=== PATIENT | female | born 1955 | race African-American/Black ===

== ENCOUNTER 2017-12-26 01:26 | Emergency (ER) | payer SELFPAY ==
[~2017-12-26] VITALS: Ht 165.1 cm; Wt 81.6 kg
[~2017-12-26 01:26] MED LIST: GLIP5TAB10 PO; METF500T16 PO
[2017-12-26 01:50] VITALS: BP 167/80
--- NOTE | 2017-12-26 02:09 | PHYS DOC ---
Past Medical History Past Medical History: Diabetes-Type II Past Surgical History: No Surgical History Alcohol Use: None Drug Use: None Adult General Chief Complaint Chief Complaint: SKIN RASH/ABSCESS HPI HPI Patient is a 62 year old female who presents with itching to the scan with a macular papular utricarial rash to her trunk. Patient doesn't know what could' ve caused it but states she ate brussels sprouts tonight which she usually does not eat which she made them herself. Patient has no other acute complaints except for this generalized acute itching and rash Review of Systems Review of Systems Constitutional: Denies fever or chills [] Eyes: Denies change in visual acuity, redness, or eye pain [] HENT: Denies nasal congestion or sore throat [] Respiratory: Denies cough or shortness of breath [] Cardiovascular: No additional information not addressed in HPI [] GI: Denies abdominal pain, nausea, vomiting, bloody stools or diarrhea [] : Denies dysuria or hematuria [] Musculoskeletal: Denies back pain or joint pain [] Integument: Positive for rash, Denies skin lesions [] Neurologic: Denies headache, focal weakness or sensory changes [] Endocrine: Denies polyuria or polydipsia [] All other systems were reviewed and found to be within normal limits, except as documented in this note. Allergies Allergies Allergies Coded Allergies Type Severity Reaction Last Updated Verified No Known Drug Allergies 02/26/15 No Physical Exam Physical Exam Constitutional: Well developed, well nourished, no acute distress, non-toxic appearance. [] HENT: Normocephalic, atraumatic, bilateral external ears normal, oropharynx moist, no oral exudates, nose normal. [] Eyes: PERRLA, EOMI, conjunctiva normal, no discharge. [] Neck: Normal range of motion, no tenderness, supple, no stridor. [] Cardiovascular:Heart rate regular rhythm, no murmur [] Lungs & Thorax: Bilateral breath sounds clear to auscultation [] Abdomen: Bowel sounds normal, soft, no tenderness, no masses, no pulsatile masses. [] Skin: Warm, dry, no erythema, urticarial rash to trunk. [] Back: No tenderness, no CVA tenderness. [] Extremities: No tenderness, no cyanosis, no clubbing, ROM intact, no edema. [] Neurologic: Alert and oriented X 3, normal motor function, normal sensory function, no focal deficits noted. [] Psychologic: Affect normal, judgement normal, mood normal. [] Current Patient Data Vital Signs Vital Signs Date Time Temp Pulse Resp B/P (MAP) Pulse Ox O2 Delivery O2 Flow Rate FiO2 12/26/17 01:50 98.1 79 18 97 Room Air 98.1 EKG EKG [] Radiology/Procedures Radiology/Procedures [] Course & Med Decision Making Course & Med Decision Making Pertinent Labs and Imaging studies reviewed. (See chart for details) [] Dragon Disclaimer Dragon Disclaimer This electronic medical record was generated, in whole or in part, using a voice recognition dictation system. Departure Departure Impression: Primary Impression: Allergic reaction Disposition: 01 HOME, SELF-CARE Condition: STABLE Referrals: NO PCP (PCP) Patient Instructions: Allergies, Generic Scripts Prednisone (PREDNISONE) 50 Mg Tablet 1 TAB PO DAILY, #4 TAB Prov: ANDREW DONALD MD 12/26/17 Diphenhydramine Hcl (BENADRYL) 25 Mg Capsule 2 CAP PO Q6HRS for rash, #60 CAP 2 Refills Prov: ANDREW DONALD MD 12/26/17 ANDREW DONALD MD Dec 26, 2017 02:09
[2017-12-26] MEDS ORDERED: DIPH25CA58 PO (02:55)
[2017-12-26] MEDS ORDERED: PRED50TA PO (02:55)
[2017-12-26] MEDS ORDERED: diphenhydrAMINE HCL 25 MG CAPSULE PO ONE (03:30)
[2017-12-26] MEDS ORDERED: predniSONE 20 MG TABLET PO ONE (03:30)
== END 2017-12-26 03:09 | disposition home or self-care (01) ==
LOC: ER 01:26
DX: L50.0 Allergic urticaria (principal); E11.9 Type 2 diabetes mellitus without complications
CPT/HCPCS: 99283; J7512; Q0163

== ENCOUNTER 2018-11-06 12:27 | Inpatient (IN) | payer SELFPAY ==
[~2018-11-06] VITALS: Ht 165.1 cm; Wt 52.6 kg
[~2018-11-06 12:27] MED LIST changes: +DIPH25CA58 PO; +PRED50TA PO
--- NOTE | 2018-11-06 12:51 | PHYS DOC ---
Past Medical History Past Medical History: Diabetes-Type II Past Surgical History: No Surgical History Alcohol Use: None Drug Use: None Adult General Chief Complaint Chief Complaint: NEURO SYMPTOMS/DEFICITS [facility] HPI Patient is a 63 year old female who presents with obtaining of problem with speech. Patient's sister states she was in her normal condition last night at 2300 and this morning she had had expressive aphasia without slurred speech or focal neuro deficit. Patient states she has problems with remembering the words and denies chest pain, headache, blurred vision, nausea and vomiting, focal neuro deficit. Patient's son states she lost about 50 pounds for the last few months and had some tests by her primary care physician. Review of Systems Review of Systems Constitutional: Denies fever or chills [] Eyes: Denies change in visual acuity, redness, or eye pain [] HENT: Denies nasal congestion or sore throat [] Respiratory: Denies cough or shortness of breath [] Cardiovascular: No additional information not addressed in HPI [] GI: Denies abdominal pain, nausea, vomiting, bloody stools or diarrhea [] : Denies dysuria or hematuria [] Musculoskeletal: Denies back pain or joint pain [] Integument: Denies rash or skin lesions [] Neurologic: Denies headache, focal weakness or sensory changes [] Endocrine: Denies polyuria or polydipsia [] All other systems were reviewed and found to be within normal limits, except as documented in this note. Current Medications Current Medications Current Medications Medications (Trade) Dose Ordered Sig/Edda Start Time Stop Time Status Last Admin Dose Admin Magnesium Sulfate 50 ml @ 25 mls/hr 1X ONCE 11/06/18 14:45 11/06/18 16:44 11/06/18 15:19 25 MLS/HR Allergies Allergies Allergies Coded Allergies Type Severity Reaction Last Updated Verified No Known Drug Allergies 02/26/15 No Physical Exam Physical Exam Constitutional: Well developed, well nourished, mild distress, non-toxic appearance. [] HENT: Normocephalic, atraumatic. Eyes: PERRLA, EOMI, conjunctiva normal, no discharge. [] Neck: Normal range of motion, no tenderness, supple, no stridor. [] Cardiovascular:Heart rate regular rhythm, no murmur [] Lungs & Thorax: Bilateral breath sounds clear to auscultation [] Abdomen: Bowel sounds normal, soft, no tenderness, no masses, no pulsatile masses. [] Skin: Warm, dry, no erythema, no rash. [] Back: No tenderness, no CVA tenderness. [] Extremities: No tenderness, no cyanosis, no clubbing, ROM intact, no edema. [] Neurologic: Alert and oriented X 3, no focal deficits noted. NIHS_1 Psychologic: Affect normal, judgement normal, mood normal. [] Current Patient Data Vital Signs Vital Signs Date Time Temp Pulse Resp B/P (MAP) Pulse Ox O2 Delivery O2 Flow Rate FiO2 11/06/18 14:00 98 14 99 11/06/18 12:31 98.1 145/70 (95) Room Air 98.1 Lab Values Laboratory Tests Test 11/06/18 12:47 11/06/18 13:20 Glucose (Fingerstick) 200 mg/dL (70-99) H White Blood Count 9.4 x10^3/uL (4.0-11.0) Red Blood Count 4.31 x10^6/uL (3.50-5.40) Hemoglobin 12.6 g/dL (12.0-15.5) Hematocrit 37.6 % (36.0-47.0) Mean Corpuscular Volume 87 fL (79-100) Mean Corpuscular Hemoglobin 29 pg (25-35) Mean Corpuscular Hemoglobin Concent 34 g/dL (31-37) Red Cell Distribution Width 13.4 % (11.5-14.5) Platelet Count 328 x10^3/uL (140-400) Neutrophils (%) (Auto) 65 % (31-73) Lymphocytes (%) (Auto) 29 % (24-48) Monocytes (%) (Auto) 5 % (0-9) Eosinophils (%) (Auto) 1 % (0-3) Basophils (%) (Auto) 1 % (0-3) Neutrophils # (Auto) 6.1 x10^3/uL (1.8-7.7) Lymphocytes # (Auto) 2.7 x10^3/uL (1.0-4.8) Monocytes # (Auto) 0.5 x10^3/uL (0.0-1.1) Eosinophils # (Auto) 0.0 x10^3/uL (0.0-0.7) Basophils # (Auto) 0.1 x10^3/uL (0.0-0.2) Prothrombin Time 13.0 SEC (11.7-14.0) Prothrombin Time INR 1.0 (0.8-1.1) Activated Partial Thromboplast Time 28 SEC (24-38) Sodium Level 143 mmol/L (136-145) Potassium Level 3.5 mmol/L (3.5-5.1) Chloride Level 102 mmol/L (98-107) Carbon Dioxide Level 34 mmol/L (21-32) H Anion Gap 7 (6-14) Blood Urea Nitrogen 14 mg/dL (7-20) Creatinine 0.8 mg/dL (0.6-1.0) Estimated GFR (Cockcroft-Gault) 87.7 BUN/Creatinine Ratio 18 (6-20) Glucose Level 213 mg/dL (70-99) H Calcium Level 10.0 mg/dL (8.5-10.1) Magnesium Level 1.4 mg/dL (1.8-2.4) L Total Bilirubin 0.6 mg/dL (0.2-1.0) Aspartate Amino Transferase (AST) 10 U/L (15-37) L Alanine Aminotransferase (ALT) 8 U/L (14-59) L Alkaline Phosphatase 62 U/L (46-116) Creatine Kinase 29 U/L (26-192) Troponin I Quantitative < 0.017 ng/mL (0.000-0.055) IG-Ntt-N-Type Natriuretic Peptide 606 pg/mL (0-124) H Total Protein 7.4 g/dL (6.4-8.2) Albumin 4.0 g/dL (3.4-5.0) Albumin/Globulin Ratio 1.2 (1.0-1.7) Laboratory Tests 11/06/18 13:20 Laboratory Tests 11/06/18 13:20 EKG EKG EKG interpreted by me. EKG at 1243 showed normal sinus rhythm at rate of 98, left atrial abnormality, abnormal left axis deviation, left anterior fascicular block, no acute ST and T-wave elevation. Radiology/Procedures Radiology/Procedures [][facility] [address] [place] [address] IMAGING REPORT Signed PATIENT: FRANCISCO JAVIER FERMIN ACCOUNT: [id number] : 1955 LOCATION: ER AGE: 63 SEX: F EXAM STATUS: PRE ER ORD. PHYSICIAN: MIKE GASTELUM MD REASON: expressive aphasia PROCEDURE: PORTABLE CHEST 1V PORTABLE CHEST 1V History: Expressive aphasia. Comparison: None. Findings: No consolidation or pleural effusion. Normal heart size. Chronic right proximal humerus fracture, unchanged alignment. Impression: 1. No acute cardiopulmonary process. Electronically signed by: Osmel Mccullough DO (11/06/2018 1:07 PM) [facility] DICTATED and SIGNED BY: OSMEL MCCULLOUGH DO DATE: 11/06/18 1309 [facility] [address] [place], [place] [id number] IMAGING REPORT Signed PATIENT: FRANCISCO JAVIER FERMIN ACCOUNT: [id number] : 1955 LOCATION: ER AGE: 63 SEX: F EXAM STATUS: REG ER ORD. PHYSICIAN: MIKE GASTELUM MD REASON: expressive aphasia PROCEDURE: CT HEAD WO CONTRAST CT HEAD INDICATION: Expressive aphasia COMPARISON: None Available. Exposure: One or more of the following individualized dose reduction techniques were utilized for this examination: 1. Automated exposure control 2. Adjustment of the mA and/or kV according to patient size 3. Use of iterative reconstruction technique TECHNIQUE: 5 mm contiguous axial images were obtained from the skull base to the vertex in both bone and soft tissue algorithm. FINDINGS: Mild bilateral periventricular white matter hypodensities likely chronic small vessel ischemic disease. No evidence of acute intracranial hemorrhage. No extra-axial fluid collections. No mass effect or midline shift. Ventricular size is appropriate. Basal cisterns are patent. No fractures identified.Sierra-white differentiation is preserved.Globes and orbits are within normal limits. Paranasal sinuses and mastoid air cells are clear. IMPRESSION: No acute intracranial findings. Electronically signed by: Micheal Alexander MD (11/06/2018 2:05 PM) [facility] DICTATED and SIGNED BY: MICHEAL ALEXANDER MD DATE: 11/06/18 1405 Course & Med Decision Making Course & Med Decision Making Pertinent Labs and Imaging studies reviewed. (See chart for details) Evaluation of patient in ER showed 63-year-old female patient with expressive aphasia since this morning that gradually improved without returning to her b aseline. Patient had NIHS-1 and was not a candidate for TPA because of low NIH and also unknown time of the starting symptom. Patient had unremarkable labs except for mild elevation of blood sugar and magnesium of 1.4 patient treated with IV magnesium.Patient requiring admission for further evaluation and treatment. Discussed with Dr. Chaudhry who is in agreement with admission. Discussed findings and plan with patient and family, who acknowledge understanding and agreement. Dragon Disclaimer Dragon Disclaimer This electronic medical record was generated, in whole or in part, using a voice recognition dictation system. Departure Departure Impression: Primary Impression: Expressive aphasia Additional Impressions: Hypomagnesemia Uncontrolled diabetes mellitus Elevated brain natriuretic peptide (BNP) level Weight loss Disposition: ADMITTED INPATIENT (at 1535) Admitting Physician: RUTS (Dr Chaudhry accepted ) Condition: IMPROVED Referrals: NO PCP (PCP) NIHSS Stroke Scale NIH Stroke Scale: NIH Stroke Scale Response (Comments) Value Level of Consciousness: 0 Alert/Responsive 0 LOC Questions: 0 Answers both correctly 0 LOC Commands: 0 Performs both tasks 0 Best Gaze: 0 Normal 0 Visual: 0 No visual loss 0 Facial Palsy: 0 Normal, symmetrical 0 Motor - Left Arm 0 No drift 0 Motor - Right Arm 0 No drift 0 Motor - Left Leg 0 No drift 0 Motor: Right Leg 0 No drift 0 Limb Ataxia: 0 Absent 0 Sensory: 0 No loss 0 Best Language: 1 Mild to mod aphasia 1 Dysathria: 0 Normal 0 Extinction and Inattention: 0 Normal 0 Total 1 Problem Qualifiers Additional Impressions: Uncontrolled diabetes mellitus Diabetes mellitus type: other specified (including SEBASTIAN) Glycemic state: with hyperglycemia Qualified Codes: E13.65 - Other specified diabetes mellitus with hyperglycemia MIKE GASTELUM MD Nov 06, 2018 12:51
--- NOTE | 2018-11-06 13:10 | RAD ---
PORTABLE CHEST 1V History: Expressive aphasia. Comparison: None. Findings: No consolidation or pleural effusion. Normal heart size. Chronic right proximal humerus fracture, unchanged alignment. Impression: 1. No acute cardiopulmonary process. Electronically signed by: Osmel Mccullough DO (11/06/2018 1:07 PM) [facility]
[2018-11-06 13:29] LABS: BASO # 0.1 x10^3/uL (0.0-0.2); BASO % 1 % (0-3); EOS % 1 % (0-3); HEMATOCRIT 37.6 % (36.0-47.0); HEMOGLOBIN 12.6 g/dL (12.0-15.5); LYMPH # 2.7 x10^3/uL (1.0-4.8); LYMPH % 29 % (24-48); MEAN CORPUSCULAR HEMOGLOBIN 29 pg (25-35); MEAN CORPUSCULAR HGB CONC 34 g/dL (31-37); MEAN CORPUSCULAR VOLUME 87 fL (79-100); MONO # 0.5 x10^3/uL (0.0-1.1); MONO % 5 % (0-9); NEUT # 6.1 x10^3/uL (1.8-7.7); NEUT % 65 % (31-73); PLATELET COUNT 328 x10^3/uL (140-400); RED BLOOD COUNT 4.31 x10^6/uL (3.50-5.40); RED CELL DISTRIBUTION WIDTH 13.4 % (11.5-14.5); WHITE BLOOD COUNT 9.4 x10^3/uL (4.0-11.0)
[2018-11-06 13:42] LABS: CREATININE 0.8 mg/dL (0.6-1.0); GFR 87.7; POTASSIUM 3.5 mmol/L (3.5-5.1)
[2018-11-06 13:48] LABS: ALBUMIN/GLOBULIN RATIO 1.2 (1.0-1.7); MAGNESIUM 1.4 mg/dL (1.8-2.4); TOTAL BILIRUBIN 0.6 mg/dL (0.2-1.0); TOTAL PROTEIN 7.4 g/dL (6.4-8.2)
--- NOTE | 2018-11-06 14:09 | RAD ---
CT HEAD INDICATION: Expressive aphasia COMPARISON: None Available. Exposure: One or more of the following individualized dose reduction techniques were utilized for this examination: 1. Automated exposure control 2. Adjustment of the mA and/or kV according to patient size 3. Use of iterative reconstruction technique TECHNIQUE: 5 mm contiguous axial images were obtained from the skull base to the vertex in both bone and soft tissue algorithm. FINDINGS: Mild bilateral periventricular white matter hypodensities likely chronic small vessel ischemic disease. No evidence of acute intracranial hemorrhage. No extra-axial fluid collections. No mass effect or midline shift. Ventricular size is appropriate. Basal cisterns are patent. No fractures identified.Sierra-white differentiation is preserved.Globes and orbits are within normal limits. Paranasal sinuses and mastoid air cells are clear. IMPRESSION: No acute intracranial findings. Electronically signed by: Micheal Navarrete MD (11/06/2018 2:05 PM) [facility]
[2018-11-06] MEDS ORDERED: MAGNESIUM SULFATE 2GM 50 ML IV ONE (14:45)
[2018-11-06] MEDS ORDERED: ASPIRIN CHEWABLE 81 MG TABLET. PO ONE (15:00)
--- NOTE | 2018-11-06 15:40 | PDOC1 ---
History and Physical Date of Admission Date of Admission DATE: 11/06/18 TIME: 15:39 Identification/Chief Complaint Chief Complaint Expressive aphasia Source Source: Chart review, Patient History of Present Illness History of Present Illness Ms Moreno is a 63yo F w/ PMHx Diabetes-Type II who presents with expressive aphasia. Patient's sister states she was in her normal condition last night at 2300 and this morning she had had expressive aphasia without slurred speech or focal neuro deficit. Patient states she has problems with remembering the words and denies chest pain, headache, blurred vision, nausea and vomiting, focal neuro deficit. Patient's son states she lost about 50 pounds for the last few months and had some tests by her primary care physician, apparently. 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 Past Medical History Cardiovascular: No pertinent hx Pulmonary: No pertinent hx GI: No pertinent hx Heme/Onc: No pertinent hx Hepatobiliary: No pertinent hx Psych: No pertinent hx Rheumatologic: No pertinent hx Infectious disease: No pertinent hx ENT: No pertinent hx Renal/: No pertinent hx Endocrine: No pertinent hx Dermatology: No pertinent hx Past Surgical History Past Surgical History: No pertinent history Family History Family History: Diabetes, High Cholestrol, Hypertension Social History Smoke: No ALCOHOL: none Drugs: None Current Medications Current Medications Current Medications Magnesium Sulfate 50 ml @ 25 mls/hr 1X ONCE IV Last administered on 11/06/18at 15:19; Start 11/06/18 at 14:45; Stop 11/06/18 at 16:44 Aspirin (Children'S Aspirin) 81 mg 1X ONCE PO Last administered on 11/06/18at 15:15; Start 11/06/18 at 15:00; Stop 11/06/18 at 15:12; Status DC Active Scripts Active Prednisone 50 Mg Tablet 1 Tab PO DAILY Benadryl (Diphenhydramine Hcl) 25 Mg Capsule 2 Cap PO Q6HRS Reported Glipizide 5 Mg Tablet 1 Tab PO BID Metformin Hcl 500 Mg Tablet 500 Mg PO BIDWMEALS Allergies Allergies: Coded Allergies: No Known Drug Allergies (Unverified , 02/26/15) ROS General: YES: Fatigue, Malaise, Appetite; No: Chills, Night Sweats, Other PSYCHOLOGICAL ROS: YES: Anxiety, Depression; No: Behavioral Disorder, Concentration difficultie, Decreased libido, Disorientation, Hallucinations, Hostility, Irritablity, Memory difficulties, Mood Swings, Obsessive thoughts, Physical abuse, Sexual abuse, Sleep disturbances, Suicidal ideation, Other Eyes: No Blurry vision, No Decreased vision, No Double vision, No Dry eyes, No Excessive tearing, No Eye Pain, No Itchy Eyes, No Loss of vision, No Photophobia, No Scotomata, No Uses contacts, No Uses glasses, No Other HEENT: No: Heacaches, Visual Changes, Hearing change, Nasal congestion, Nasal discharge, Oral lesions, Sinus pain, Sore Throat, Epistaxis, Sneezing, Snoring, Tinnitus, Vertigo, Vocal changes, Other ALLERGY AND IMMUNOLOGY: No: Hives, Insect Bite Sensitivity, Itchy/Watery Eyes, Nasal Congestion, Post Nasal Drip, Seasonal Allergies, Other Hematological and Lymphatic: No: Bleeding Problems, Blood Clots, Blood Transfusions, Brusing, Night Sweats, Pallor, Swollen Lymph Nodes, Other ENDOCRINE: YES: Malaise/lethargy, Unexpected Weight Changes; No: Breast Changes, Galactorrhea, Hair Pattern Changes, Hot Flashes, Mood Swings, Palpitations, Polydipsia/polyuria, Skin Changes, Temperature I ntolerance, Other Breast: No New/Changing Breast Lumps, No Nipple changes, No Nipple discharge, No Other Respiratory: No: Cough, Hemoptysis, Orthopnea, Pleuritic Pain, Shortness of breath, SOB with excertion, Sputum Changes, Stridor, Tachypnea, Wheezing, Other Cardiovascular: No Chest Pain, No Palpitations, No Orthopnea, No Paroxysmal Noc. Dyspnea, No Edema, No Lt Headedness, No Other Gastrointestinal: No Nausea, No Vomiting, No Abdominal Pain, No Diarrhea, No Constipation, No Melena, No Hematochezia, No Other Genitourinary: No Dysuria, No Frequency, No Incontinence, No Hematuria, No Retention, No Discharge, No Urgency, No Pain, No Flank Pain, No Other, No , No , No , No , No , No , No Musculoskeletal: No Gait Disturbance, No Joint Pain, No Joint Stiffness, No Joint Swelling, No Muscle Pain, No Muscular Weakness, No Pain In:, No Swelling In:, No Other Neurological: Yes Speech Problems; No Behavorial Changes, No Bowel/Bladder ControlChng, No Confusion, No Dizzi ness, No Gait Disturbance, No Headaches, No Impaired Coord/balance, No Memory Loss, No Numbness/Tingling, No Seizures, No Tremors, No Visual Changes, No Weakness, No Other Skin: No Dry Skin, No Eczema, No Hair Changes, No Lumps, No Mole Changes, No Mottling, No Nail Changes, No Pruritus, No Rash, No Skin Lesion Changes, No Other, No Acne Physical Exam General: Alert, Oriented X3, Cooperative, No acute distress HEENT: Atraumatic, PERRLA, EOMI, Mucous membr. moist/pink Lungs: Clear to auscultation, Normal air movement Heart: S1S2, RRR, no gallops, no murmurs Abdomen: Normal bowel sounds, Soft, No tenderness, No hepatosplenomegaly, No masses Rectal Exam: not examined Extremities: No clubbing, No cyanosis, No edema, Normal pulses, No tenderness/swelling Skin: No rashes, No breakdown, No significant lesion Neuro: Normal gait, Normal speech, Strength at 5/5 X4 ext, Normal tone, Sensation intact, Cranial nerves 3-12 NL, Reflexes 2+ Psych/Mental Status: Mental status NL, Mood NL Vitals Vitals Vital Signs Date Time Temp Pulse Resp B/P (MAP) Pulse Ox O2 Delivery O2 Flow Rate FiO2 11/06/18 15:00 98 14 100 11/06/18 12:31 98.1 145/70 (95) Room Air 98.1 Labs Labs Laboratory Tests Test 11/06/18 12:47 11/06/18 13:20 Glucose (Fingerstick) 200 mg/dL (70-99) White Blood Count 9.4 x10^3/uL (4.0-11.0) Red Blood Count 4.31 x10^6/uL (3.50-5.40) Hemoglobin 12.6 g/dL (12.0-15.5) Hematocrit 37.6 % (36.0-47.0) Mean Corpuscular Volume 87 fL (79-100) Mean Corpuscular Hemoglobin 29 pg (25-35) Mean Corpuscular Hemoglobin Concent 34 g/dL (31-37) Red Cell Distribution Width 13.4 % (11.5-14.5) Platelet Count 328 x10^3/uL (140-400) Neutrophils (%) (Auto) 65 % (31-73) Lymphocytes (%) (Auto) 29 % (24-48) Monocytes (%) (Auto) 5 % (0-9) Eosinophils (%) (Auto) 1 % (0-3) Basophils (%) (Auto) 1 % (0-3) Neutrophils # (Auto) 6.1 x10^3/uL (1.8-7.7) Lymphocytes # (Auto) 2.7 x10^3/uL (1.0-4.8) Monocytes # (Auto) 0.5 x10^3/uL (0.0-1.1) Eosinophils # (Auto) 0.0 x10^3/uL (0.0-0.7) Basophils # (Auto) 0.1 x10^3/uL (0.0-0.2) Prothrombin Time 13.0 SEC (11.7-14.0) Prothromb Time International Ratio 1.0 (0.8-1.1) Activated Partial Thromboplast Time 28 SEC (24-38) Sodium Level 143 mmol/L (136-145) Potassium Level 3.5 mmol/L (3.5-5.1) Chloride Level 102 mmol/L (98-107) Carbon Dioxide Level 34 mmol/L (21-32) Anion Gap 7 (6-14) Blood Urea Nitrogen 14 mg/dL (7-20) Creatinine 0.8 mg/dL (0.6-1.0) Estimated GFR (Cockcroft-Gault) 87.7 BUN/Creatinine Ratio 18 (6-20) Glucose Level 213 mg/dL (70-99) Calcium Level 10.0 mg/dL (8.5-10.1) Magnesium Level 1.4 mg/dL (1.8-2.4) Total Bilirubin 0.6 mg/dL (0.2-1.0) Aspartate Amino Transf (AST/SGOT) 10 U/L (15-37) Alanine Aminotransferase (ALT/SGPT) 8 U/L (14-59) Alkaline Phosphatase 62 U/L (46-116) Creatine Kinase 29 U/L (26-192) Troponin I Quantitative < 0.017 ng/mL (0.000-0.055) VQ-Rvw-L-Type Natriuretic Peptide 606 pg/mL (0-124) Total Protein 7.4 g/dL (6.4-8.2) Albumin 4.0 g/dL (3.4-5.0) Albumin/Globulin Ratio 1.2 (1.0-1.7) Laboratory Tests Test 11/06/18 12:47 11/06/18 13:20 Glucose (Fingerstick) 200 mg/dL (70-99) White Blood Count 9.4 x10^3/uL (4.0-11.0) Red Blood Count 4.31 x10^6/uL (3.50-5.40) Hemoglobin 12.6 g/dL (12.0-15.5) Hematocrit 37.6 % (36.0-47.0) Mean Corpuscular Volume 87 fL (79-100) Mean Corpuscular Hemoglobin 29 pg (25-35) Mean Corpuscular Hemoglobin Concent 34 g/dL (31-37) Red Cell Distribution Width 13.4 % (11.5-14.5) Platelet Count 328 x10^3/uL (140-400) Neutrophils (%) (Auto) 65 % (31-73) Lymphocytes (%) (Auto) 29 % (24-48) Monocytes (%) (Auto) 5 % (0-9) Eosinophils (%) (Auto) 1 % (0-3) Basophils (%) (Auto) 1 % (0-3) Neutrophils # (Auto) 6.1 x10^3/uL (1.8-7.7) Lymphocytes # (Auto) 2.7 x10^3/uL (1.0-4.8) Monocytes # (Auto) 0.5 x10^3/uL (0.0-1.1) Eosinophils # (Auto) 0.0 x10^3/uL (0.0-0.7) Basophils # (Auto) 0.1 x10^3/uL (0.0-0.2) Prothrombin Time 13.0 SEC (11.7-14.0) Prothromb Time International Ratio 1.0 (0.8-1.1) Activated Partial Thromboplast Time 28 SEC (24-38) Sodium Level 143 mmol/L (136-145) Potassium Level 3.5 mmol/L (3.5-5.1) Chloride Level 102 mmol/L (98-107) Carbon Dioxide Level 34 mmol/L (21-32) Anion Gap 7 (6-14) Blood Urea Nitrogen 14 mg/dL (7-20) Creatinine 0.8 mg/dL (0.6-1.0) Estimated GFR (Cockcroft-Gault) 87.7 BUN/Creatinine Ratio 18 (6-20) Glucose Level 213 mg/dL (70-99) Calcium Level 10.0 mg/dL (8.5-10.1) Magnesium Level 1.4 mg/dL (1.8-2.4) Total Bilirubin 0.6 mg/dL (0.2-1.0) Aspartate Amino Transf (AST/SGOT) 10 U/L (15-37) Alanine Aminotransferase (ALT/SGPT) 8 U/L (14-59) Alkaline Phosphatase 62 U/L (46-116) Creatine Kinase 29 U/L (26-192) Troponin I Quantitative < 0.017 ng/mL (0.000-0.055) VV-Xpq-I-Type Natriuretic Peptide 606 pg/mL (0-124) Total Protein 7.4 g/dL (6.4-8.2) Albumin 4.0 g/dL (3.4-5.0) Albumin/Globulin Ratio 1.2 (1.0-1.7) VTE Prophylaxis Ordered VTE Prophylaxis Devices: Yes VTE Pharmacological Prophylaxi: No Assessment/Plan Assessment/Plan A/P: Expressive aphasia - will have bedside swallow prior to advancing diet. LOGISTICS ASSISTANT to evaluated. Symptoms already improving. NIHSS 1. ASA given. will check lipids, TSH. Neurology was consulted by ED. Telemetry overnight Abnormal weight loss - unintentionally lost about 50 pounds for the last few months. Check TSH. close to UTD on cancer screenings Diabetes-Type II - on metformin and glipizide, Hold metformin in case CTA ordered. Sliding scale as well for now Hypomagnesemia - will replace IV for mag 1.4. Replace potassium as well Anxiety - stress at work, take a few days off work. FEN - ADA diet PPX - SCDs, ambulatory FULL CODE Dispo - inpatient telemetry monitoring for expressive aphasia JANETTE GLASS MD Nov 06, 2018 15:40
[2018-11-06] MEDS ORDERED: DEXTROSE 50% 25 GM / 50ML DISP.SYRIN. IV PRN (16:45)
[2018-11-06] MEDS ORDERED: IV DEXTROSE 5% 250 ML BAG. IV PRN (16:45)
[2018-11-06 16:48] VITALS: BP 158/85
--- NOTE | 2018-11-06 16:50 | EKG ---
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
[2018-11-06] MEDS ORDERED: POTASSIUM CHLORIDE 20 MEQ TABLET.ER. PO ONE (17:00)
[2018-11-06 19:51] VITALS: BP 167/82
[2018-11-06] MEDS: ATORVASTATIN CALCIUM 40 MG TABLET. PO SCH (21:00)
[2018-11-06] MEDS: INSULIN LISPRO 300 UNITS/3 ML VIAL. SQ SCH (21:00)
[2018-11-06] MEDS: INSULIN GLARGINE SYRINGE. SQ SCH (21:00)
[2018-11-06] MEDS: glipiZIDE 5 MG TABLET PO SCH (21:51)
[2018-11-06 23:15] VITALS: BP 180/87
[2018-11-07 02:16] LABS: BILIRUBIN,URINE NEGATIVE (NEG); CLARITY,URINE CLEAR; COLOR,URINE YELLOW; NITRITE,URINE NEGATIVE (NEG); PH,URINE 7.5; PROTEIN,URINE 30 mg/dL (NEG-TRACE)
[2018-11-07 02:23] LABS: BARBITURATES NEG (NEG); BENZODIAZEPINES NEG (NEG); CANNABINOIDS NEG (NEG); COCAINE NEG (NEG); METHADONE NEG (NEG); OPIATES NEG (NEG); PHENCYCLIDINE NEG (NEG)
[2018-11-07 02:25] LABS: AMORPHOUS SEDIMENT,UR PRESENT /HPF; BACTERIA,URINE FEW /HPF (0-FEW); RBC,URINE 0 /HPF (0-2); SQUAMOUS EPITHELIAL CELL,UR MOD /LPF; WBC,URINE OCC /HPF (0-4)
[2018-11-07 02:26] LABS: HYALINE CASTS, URINE FEW /HPF
[2018-11-07 02:30] LABS: AMPHETAMINE/METHAMPHETAMINE NEG (NEG)
--- NOTE | 2018-11-07 02:33 | CONS ---
DATE OF CONSULTATION: 11/06/2018 REFERRING PHYSICIAN: Jas Chaudhry M.D. REASON FOR CONSULTATION: TIA or possible stroke. HISTORY OF PRESENT ILLNESS: The patient is a 63-year-old woman who went to bed normally last night, but this morning awoke around 7:00 with expressive aphasia. Her sister states that she did not have slurred speech or any focal deficits. She did not note any weakness or numbness or change in balance. The patient states that symptoms lasted about 20 minutes and then fully resolved. She has never had similar symptoms. The patient's son states that she lost 50 pounds in the last few months and some testing was performed to evaluate. 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 PAST MEDICAL HISTORY: 1. Hyperlipidemia. She reports taking a lipid-lowering medicine on one occasion and felt to provoke side effects, so she did not take it any further. 2. Diabetes. 3. Hypertension. ALLERGIES: No known allergies to drugs. MEDICINES PRIOR TO ADMISSION: Diphenhydramine 50 mg every 6 hours as needed, glipizide 5 mg twice per day and metformin 500 mg twice per day with meals. FAMILY HISTORY: Diabetes, hyperlipidemia and hypertension are in the family. SOCIAL HISTORY: She quit smoking between 5 and 10 years ago. She does not drink alcohol or use recreational drugs. She is single. She has children, grandchildren and 1 great grandchild. REVIEW OF SYSTEMS: She has not had any headache. There has been no change of vision or hearing. She has had no cognitive loss but did have inability to get out words for 20 minutes this morning. She has had no trouble with swallow. She has not had shortness of breath, cough or cold. She denies chest or abdominal pain. Does not have bone or joint pain. She has not had fever or rash. Has not had gastrointestinal or genitourinary complaints. Does not complain of easy bruising, bleeding or swelling. Denies any psychiatric concerns. PHYSICAL EXAMINATION: VITAL SIGNS: The blood pressure was 167/82, pulse 98, respirations 18 and temperature 98.8 degrees Fahrenheit orally. Oximetry was 96% on room air. Her weight was 53 kilograms, height 65 inches with a calculated body mass index of 19.5. GENERAL: She was alert, awake and cooperative. Speech was fluent and clear. She had a good fund of recent and remote knowledge. Attention and concentration was intact. She appeared well groomed and well nourished. She was fully oriented. NEUROLOGIC: Examination of the cranial nerves revealed visual flynn were full to confrontation. Extraocular movements were intact. The eyes were conjugate. Pursuit movements were smooth and saccadic eye movements were without dysmetria. Pupils were 3 mm and reacted. Funduscopic exam did not reveal papilledema, exudate or hemorrhage. Facial sensation was intact. The muscles of mastication and facial expression were powerful symmetrically. Hearing was intact to finger rub. The palate arched symmetrically and the tongue was midline with full range of motion. Sternocleidomastoid and trapezius were powerful. Muscle bulk and tone was normal. There was no arm or leg drift. The power was full and symmetric in the upper and lower extremities. Reflexes were 2/4 and symmetric in the upper and lower extremities, but absent at both ankles. Toes were downgoing. Coordination testing with [id number], zmof-dz-pyio, fine motor and rapid alternating movements was well performed. The sensory exam was intact to pain, light touch, proprioception, graphesthesia, cold thermal and vibration. There was no extinction to double simultaneous stimulation. Gait was normal base and steady. She was able to heel and toe walk. The Romberg stance was negative. NECK: Auscultation of the carotid arteries did not reveal a bruit. HEART: Rhythm is regular without a murmur. EXTREMITIES: Peripheral pulses were symmetric. There was no edema or cyanosis. REVIEW OF LABORATORY DATA: CBC revealed a normal white blood cell count, hemoglobin, hematocrit and platelet count. Chemistry revealed normal electrolytes, but CO2 was elevated at 34. BUN and creatinine were normal with a GFR that calculated a 7.7. Glucose elevated to 213. Calcium was 10 with albumin at 4 and total protein at 7.4. Magnesium was low at 1.4. Liver enzymes were not elevated. CPK was not elevated. BNP was elevated at 606. Troponin was not elevated. TSH was normal. PT/INR was 1 and PTT was 28. IMAGING: CT scan of the head was performed on 11/06/2018 without contrast and revealed no acute intracranial finding. Chest x-ray was performed on 11/06/2018 and revealed no acute cardiopulmonary process. IMPRESSION: The patient is a very pleasant 63-year-old woman who had 20 minutes of what sounds like expressive aphasia early this morning. Symptoms fully resolved. Her neurologic exam at this time was normal except for loss of ankle reflex, which likely is related to diabetic neuropathy. I do not see any other focal findings. This may represent a transient ischemic attack or a small stroke that has already recovered. She was not on aspirin. She has a history of hyperlipidemia but only took the medication on one occasion. It would be highly unlikely to experience the side effects she did just based upon 1 pill. RECOMMENDATIONS: I will obtain a fasting lipid profile in the morning. We will obtain a hemoglobin A1c to try to get a feel of the control of the diabetes. I will obtain an MRI of brain as well as carotid Doppler. We will obtain an echocardiogram. She will be seen by the [facility]rap[facility], although her exam appears normal at this time. She has been appropriately started on aspirin as well. I appreciate being involved in her care. DEBORAH FRIEDMAN MD DR: KEN/nathan JOB#: [id number] / [id number] Dr. SARAH Gutierrez FERILYN MD
[2018-11-07 03:38] VITALS: BP 153/86
[2018-11-07 04:11] LABS: CALCIUM 9.4 mg/dL (8.5-10.1); CREATININE 0.7 mg/dL (0.6-1.0); GFR 102.3; MAGNESIUM 1.7 mg/dL (1.8-2.4); POTASSIUM 3.5 mmol/L (3.5-5.1)
[2018-11-07] MEDS: INSULIN LISPRO 300 UNITS/3 ML VIAL. SQ SCH ×4 (07:30→20:48)
[2018-11-07 07:46] VITALS: BP 167/91
[2018-11-07] MEDS ORDERED: ASPIRIN 325 MG TABLET PO SCH (08:00)
--- NOTE | 2018-11-07 09:06 | RAD ---
EXAM: Carotid Doppler sonogram. HISTORY: Stroke. TECHNIQUE: Sierra scale and color Doppler sonographic evaluation of the neck with spectral waveform analysis was performed and static images are submitted for review. FINDINGS: The peak systolic velocity within the right common carotid artery is 57 cm/sec. The peak systolic velocity within the right internal carotid artery is 55 cm/sec and the end diastolic velocity within the right internal carotid artery is 24 cm/sec. The right ICA/CCA ratio is 0.9. The peak systolic velocity within the left common carotid artery is 63 cm/sec. The peak systolic velocity within the left internal carotid artery is 75 cm/sec and the end diastolic velocity within the left internal carotid artery is 27 cm/sec. The left ICA/CCA ratio is 1.3. There is normal antegrade flow within both vertebral arteries. IMPRESSION: No Doppler evidence of hemodynamically significant stenosis within the carotid or vertebral arteries. PQRS Compliance Statement - Stenosis calculations for CT, MR and conventional angiography are based upon measurement of the distal ICA diameter in accordance with the NASCET methodology. Stenosis calculations for carotid ultrasound studies are derived from validated velocity criteria which are known to correlate with the NASCET methodology. Electronically signed by: Lisy hCarles MD (11/07/2018 9:03 AM) [id number]
[2018-11-07] MEDS: glipiZIDE 5 MG TABLET PO SCH ×2 (09:20→20:49)
[2018-11-07] MEDS ORDERED: ATOR40TA59 PO (09:46)
[2018-11-07] MEDS ORDERED: ASPI325T8 PO (09:46)
[2018-11-07] MEDS ORDERED: LISI10TA2 PO (09:48)
[2018-11-07] MEDS ORDERED: LISINOPRIL 10 MG TABLET PO ONE (10:30)
[2018-11-07 11:08] VITALS: BP 177/78
--- NOTE | 2018-11-07 13:29 | CARD ---
MR#: [id number] Date of Study: 11/07/2018 Ordering Physician: DEBORAH FRIEDMAN, Referring Physician: DEBORAH FRIEDMAN Tech: Chelsi Nunez BRANDI APPROVED REPORT EXAM: Two-dimensional and M-mode echocardiogram with Doppler and color Doppler. INDICATION CVA/TIA 2D DIMENSIONS RVDd2.9 (2.9-3.5cm)Left Atrium(2D)3.0 (1.6-4.0cm) IVSd1.5 (0.7-1.1cm)Aortic Root(2D)2.7 (2.0-3.7cm) LVDd3.5 (3.9-5.9cm)LVOT Diameter1.9 (1.8-2.4cm) PWd1.0 (0.7-1.1cm)LVDs2.3 (2.5-4.0cm) FS (%) 34.3 %SV32.9 ml M-Mode DIMENSIONS Left Atrium(MM)3.74 (2.5-4.0cm)Aortic Root3.01 (2.2-3.7cm) Aortic Valve AoV Peak Jack.106.9cm/sAoV VTI17.6cm AO Peak GR.4.6mmHgLVOT Peak Jack.77.8cm/s AO Mean GR.2mmHgAVA (VMAX)2.03cm2 MUNA (VTI)2.00cm2 Mitral Valve MV E Jyyghlma04.6cm/sMV DECEL SUME981eu MV A Gvwoyxmy18.0cm/sE/A Ratio0.6 Pulmonary Valve PV Peak Xbmkfsez62.2cm/s Tricuspid Valve TR P. Dbcyccit537nh/sRAP EQSSMEKP5fhCv TR Peak Gr.95iiTmTJOP14tkOs LEFT VENTRICLE The left ventricle is normal size. There is mild to moderate concentric left ventricular hypertrophy. The left ventricular systolic function is normal and the ejection fraction is within normal range. T he Ejection Fraction is 60-65%. There is normal LV segmental wall motion. Transmitral Doppler flow pa ttern is Grade I-abnormal relaxation pattern. RIGHT VENTRICLE The right ventricle is normal size. There is normal right ventricular wall thickness. The right ventr icular systolic function is normal. ATRIA The left atrium size is normal. The right atrium size is normal. The interatrial septum is intact wit h no evidence for an atrial septal defect or patent foramen ovale as noted on 2-D or Doppler imaging. AORTIC VALVE The aortic valve is mildly thickened but opens well. The aortic valve is trileaflet. Doppler and Pettus r Flow revealed no significant aortic regurgitation. There is no significant aortic valvular stenosis . There is no aortic valvular vegetation. MITRAL VALVE The mitral valve is thickened but opens well. There is no evidence of mitral valve prolapse. There is no mitral valve stenosis. Doppler and Color-flow revealed trace mitral regurgitation. TRICUSPID VALVE The tricuspid valve is normal in structure and function. Doppler and Color Flow revealed trace to mil d tricuspid regurgitation. The PA pressure was estimated at 38 mmHg. There is no tricuspid valve prol apse or vegetation. There is no tricuspid valve stenosis. PULMONIC VALVE The pulmonic valve is not well visualized. GREAT VESSELS The aortic root is normal in size. The ascending aorta is normal in size. The IVC is normal in size a nd collapses >50% with inspiration. PERICARDIAL EFFUSION There is no evidence of significant pericardial effusion. Critical Notification Critical Value: No <Conclusion> The left ventricle is normal size. The left ventricular systolic function is normal and the ejection fraction is within normal range. The Ejection Fraction is 60-65%. There is mild to moderate concentric left ventricular hypertrophy. The interatrial septum is intact with no evidence for an atrial septal defect or patent foramen ovale as noted on 2-D or Doppler imaging. There is no significant aortic valvular stenosis. There is no aortic valvular vegetation. Doppler and Color-flow revealed trace mitral regurgitation. Doppler and Color Flow revealed trace to mild tricuspid regurgitation. The PA pressure was estimated at 38 mmHg. Signed by : Alberto Mercado MD Electronically Approved : 11/07/2018 13:29:02
--- NOTE | 2018-11-07 14:47 | RAD ---
EXAMINATION: Magnetic resonance imaging (MRI) of the brain and brainstem without contrast 11/07/2018 5:00 AM HISTORY: Stroke TECHNIQUE: Multiplanar multi-weighted MRI of the brain and brainstem was performed without intravenous contrast using the general brain protocol. COMPARISON: CT head 11/06/2018 FINDINGS: The scalp and calvarium are normal. The superior sagittal sinus demonstrates normal venous flow. The corpus callosum is normal in shape and signal intensity. The posterior fossa is unremarkable. The pituitary and sella are normal. The brainstem and craniocervical junction are unremarkable. There are T2/FLAIR signal hyperintense foci in the periventricular and subcortical white matter most suggestive of mild chronic small vessel ischemic changes. There is mild diffusion signal hyperintensity with corresponding low signal on ADC maps involving the posterior left frontal lobe and left richard radiata compatible with small territory subacute ischemia. There is a remote lacunar infarct in left basal ganglia. The susceptibility weighted sequences reveal no evidence of acute or chronic hemorrhage. The ventricles are normal in size and position without evidence of hydrocephalus. The paranasal sinuses are normal. The visualized portions of the mastoids are unremarkable. The orbits appear normal. Normal flow voids are demonstrated in the carotid arteries and basilar artery. IMPRESSION: 1. Small territory subacute ischemia is identified in the left richard radiata and left posterior frontal lobe. No significant mass effect or midline shift. No intracranial hemorrhage is identified. 2. 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 3. There are T2/FLAIR signal hyperintense foci in the periventricular and subcortical white matter most suggestive of mild chronic small vessel ischemic changes. Electronically signed by: Maddie Nam MD (11/07/2018 2:44 PM) [id number]
--- NOTE | 2018-11-07 15:19 | PDOC ---
PROGRESS NOTES Chief Complaint Chief Complaint CVA, CVA syndrome, subacute CVA, left posterior frontal lobe Expressive aphasia - Abnormal weight loss - unintentionall Diabetes-Type II - on metformin and glipizide, Hold metformin in case CTA ordered. Sliding scale as well for now Hypomagnesemia - will replace IV for mag 1.4. Replace potassium as well Anxiety - stress at work, take a few days off work. History of Present Illness History of Present Illness try to DC today neuro following Vitals Vitals Vital Signs Date Time Temp Pulse Resp B/P (MAP) Pulse Ox O2 Delivery O2 Flow Rate FiO2 11/07/18 11:08 98.4 88 18 177/78 (111) 98 Room Air 98.4 Physical Exam General: Alert, Oriented X3, Cooperative, No acute distress Heart: Regular rate, No murmurs Lungs: Clear Abdomen: Normal bowel sounds, Soft, No tenderness, No hepatosplenomegaly, No masses Extremities: No clubbing, No cyanosis, No edema, Normal pulses, No tenderness/swelling Skin: No rashes, No breakdown, No significant lesion Labs LABS Laboratory Tests Test 11/06/18 16:54 11/06/18 21:13 11/07/18 02:00 11/07/18 03:00 Glucose (Fingerstick) 171 mg/dL (70-99) 266 mg/dL (70-99) Urine Collection Type Unknown Urine Color Yellow Urine Clarity Clear Urine pH 7.5 Urine Specific [place] 1.020 Urine Protein 30 mg/dL (NEG-TRACE) Urine Glucose (UA) 500 mg/dL (NEG) Urine Ketones (Stick) Trace mg/dL (NEG) Urine Blood Negative (NEG) Urine Nitrite Negative (NEG) Urine Bilirubin Negative (NEG) Urine Urobilinogen Dipstick 1.0 mg/dL (0.2 mg/dL) Urine Leukocyte Esterase Negative (NEG) Urine RBC 0 /HPF (0-2) Urine WBC Occ /HPF (0-4) Urine Squamous Epithelial Cells Mod /LPF Urine Amorphous Sediment Present /HPF Urine Bacteria Few /HPF (0-FEW) Urine Hyaline Casts Few /HPF Urine Mucus Mod /LPF Urine Opiates Screen Neg (NEG) Urine Methadone Screen Neg (NEG) Urine Barbiturates Neg (NEG) Urine Phencyclidine Screen Neg (NEG) Urine Amphetamine/Methamphetamine Neg (NEG) Urine Benzodiazepines Screen Neg (NEG) Urine Cocaine Screen Neg (NEG) Urine Cannabinoids Screen Neg (NEG) Urine Ethyl Alcohol Neg (NEG) Sodium Level 142 mmol/L (136-145) Potassium Level 3.5 mmol/L (3.5-5.1) Chloride Level 102 mmol/L (98-107) Carbon Dioxide Level 34 mmol/L (21-32) Anion Gap 6 (6-14) Blood Urea Nitrogen 10 mg/dL (7-20) Creatinine 0.7 mg/dL (0.6-1.0) Estimated GFR (Cockcroft-Gault) 102.3 Glucose Level 198 mg/dL (70-99) Calcium Level 9.4 mg/dL (8.5-10.1) Magnesium Level 1.7 mg/dL (1.8-2.4) Triglycerides Level 94 mg/dL (0-150) Cholesterol Level 195 mg/dL (0-200) LDL Cholesterol, Calculated 137 mg/dL (0-100) VLDL Cholesterol, Calculated 19 mg/dL (0-40) Non-HDL Cholesterol Calculated 156 mg/dL (0-129) HDL Cholesterol 39 mg/dL (40-60) Cholesterol/HDL Ratio 5.0 Test 11/07/18 07:20 11/07/18 12:02 Glucose (Fingerstick) 174 mg/dL (70-99) 209 mg/dL (70-99) Assessment and Plan Assessmemt and Plan Problems Medical Problems: (1) Elevated brain natriuretic peptide (BNP) level Status: Acute (2) Expressive aphasia Status: Acute (3) Hypomagnesemia Status: Acute (4) Uncontrolled diabetes mellitus Status: Acute (5) Weight loss Status: Acute Comment Review of Relevant I have reviewed the following items chirag (where applicable) has been applied. Labs Laboratory Tests Test 11/06/18 12:47 11/06/18 13:20 11/06/18 16:54 11/06/18 21:13 Glucose (Fingerstick) 200 mg/dL (70-99) 171 mg/dL (70-99) 266 mg/dL (70-99) White Blood Count 9.4 x10^3/uL (4.0-11.0) Red Blood Count 4.31 x10^6/uL (3.50-5.40) Hemoglobin 12.6 g/dL (12.0-15.5) Hematocrit 37.6 % (36.0-47.0) Mean Corpuscular Volume 87 fL (79-100) Mean Corpuscular Hemoglobin 29 pg (25-35) Mean Corpuscular Hemoglobin Concent 34 g/dL (31-37) Red Cell Distribution Width 13.4 % (11.5-14.5) Platelet Count 328 x10^3/uL (140-400) Neutrophils (%) (Auto) 65 % (31-73) Lymphocytes (%) (Auto) 29 % (24-48) Monocytes (%) (Auto) 5 % (0-9) Eosinophils (%) (Auto) 1 % (0-3) Basophils (%) (Auto) 1 % (0-3) Neutrophils # (Auto) 6.1 x10^3/uL (1.8-7.7) Lymphocytes # (Auto) 2.7 x10^3/uL (1.0-4.8) Monocytes # (Auto) 0.5 x10^3/uL (0.0-1.1) Eosinophils # (Auto) 0.0 x10^3/uL (0.0-0.7) Basophils # (Auto) 0.1 x10^3/uL (0.0-0.2) Prothrombin Time 13.0 SEC (11.7-14.0) Prothromb Time International Ratio 1.0 (0.8-1.1) Activated Partial Thromboplast Time 28 SEC (24-38) Sodium Level 143 mmol/L (136-145) Potassium Level 3.5 mmol/L (3.5-5.1) Chloride Level 102 mmol/L (98-107) Carbon Dioxide Level 34 mmol/L (21-32) Anion Gap 7 (6-14) Blood Urea Nitrogen 14 mg/dL (7-20) Creatinine 0.8 mg/dL (0.6-1.0) Estimated GFR (Cockcroft-Gault) 87.7 BUN/Creatinine Ratio 18 (6-20) Glucose Level 213 mg/dL (70-99) Calcium Level 10.0 mg/dL (8.5-10.1) Magnesium Level 1.4 mg/dL (1.8-2.4) Total Bilirubin 0.6 mg/dL (0.2-1.0) Aspartate Amino Transf (AST/SGOT) 10 U/L (15-37) Alanine Aminotransferase (ALT/SGPT) 8 U/L (14-59) Alkaline Phosphatase 62 U/L (46-116) Creatine Kinase 29 U/L (26-192) Troponin I Quantitative < 0.017 ng/mL (0.000-0.055) JW-Abu-B-Type Natriuretic Peptide 606 pg/mL (0-124) Total Protein 7.4 g/dL (6.4-8.2) Albumin 4.0 g/dL (3.4-5.0) Albumin/Globulin Ratio 1.2 (1.0-1.7) Thyroid Stimulating Hormone (TSH) 0.671 uIU/mL (0.358-3.74) Test 11/07/18 02:00 11/07/18 03:00 11/07/18 07:20 11/07/18 12:02 Urine Collection Type Unknown Urine Color Yellow Urine Clarity Clear Urine pH 7.5 Urine Specific [place] 1.020 Urine Protein 30 mg/dL (NEG-TRACE) Urine Glucose (UA) 500 mg/dL (NEG) Urine Ketones (Stick) Trace mg/dL (NEG) Urine Blood Negative (NEG) Urine Nitrite Negative (NEG) Urine Bilirubin Negative (NEG) Urine Urobilinogen Dipstick 1.0 mg/dL (0.2 mg/dL) Urine Leukocyte Esterase Negative (NEG) Urine RBC 0 /HPF (0-2) Urine WBC Occ /HPF (0-4) Urine Squamous Epithelial Cells Mod /LPF Urine Amorphous Sediment Present /HPF Urine Bacteria Few /HPF (0-FEW) Urine Hyaline Casts Few /HPF Urine Mucus Mod /LPF Urine Opiates Screen Neg (NEG) Urine Methadone Screen Neg (NEG) Urine Barbiturates Neg (NEG) Urine Phencyclidine Screen Neg (NEG) Urine Amphetamine/Methamphetamine Neg (NEG) Urine Benzodiazepines Screen Neg (NEG) Urine Cocaine Screen Neg (NEG) Urine Cannabinoids Screen Neg (NEG) Urine Ethyl Alcohol Neg (NEG) Sodium Level 142 mmol/L (136-145) Potassium Level 3.5 mmol/L (3.5-5.1) Chloride Level 102 mmol/L (98-107) Carbon Dioxide Level 34 mmol/L (21-32) Anion Gap 6 (6-14) Blood Urea Nitrogen 10 mg/dL (7-20) Creatinine 0.7 mg/dL (0.6-1.0) Estimated GFR (Cockcroft-Gault) 102.3 Glucose Level 198 mg/dL (70-99) Calcium Level 9.4 mg/dL (8.5-10.1) Magnesium Level 1.7 mg/dL (1.8-2.4) Triglycerides Level 94 mg/dL (0-150) Cholesterol Level 195 mg/dL (0-200) LDL Cholesterol, Calculated 137 mg/dL (0-100) VLDL Cholesterol, Calculated 19 mg/dL (0-40) Non-HDL Cholesterol Calculated 156 mg/dL (0-129) HDL Cholesterol 39 mg/dL (40-60) Cholesterol/HDL Ratio 5.0 Glucose (Fingerstick) 174 mg/dL (70-99) 209 mg/dL (70-99) Laboratory Tests Test 11/06/18 16:54 11/06/18 21:13 11/07/18 02:00 11/07/18 03:00 Glucose (Fingerstick) 171 mg/dL (70-99) 266 mg/dL (70-99) Urine Collection Type Unknown Urine Color Yellow Urine Clarity Clear Urine pH 7.5 Urine Specific [place] 1.020 Urine Protein 30 mg/dL (NEG-TRACE) Urine Glucose (UA) 500 mg/dL (NEG) Urine Ketones (Stick) Trace mg/dL (NEG) Urine Blood Negative (NEG) Urine Nitrite Negative (NEG) Urine Bilirubin Negative (NEG) Urine Urobilinogen Dipstick 1.0 mg/dL (0.2 mg/dL) Urine Leukocyte Esterase Negative (NEG) Urine RBC 0 /HPF (0-2) Urine WBC Occ /HPF (0-4) Urine Squamous Epithelial Cells Mod /LPF Urine Amorphous Sediment Present /HPF Urine Bacteria Few /HPF (0-FEW) Urine Hyaline Casts Few /HPF Urine Mucus Mod /LPF Urine Opiates Screen Neg (NEG) Urine Methadone Screen Neg (NEG) Urine Barbiturates Neg (NEG) Urine Phencyclidine Screen Neg (NEG) Urine Amphetamine/Methamphetamine Neg (NEG) Urine Benzodiazepines Screen Neg (NEG) Urine Cocaine Screen Neg (NEG) Urine Cannabinoids Screen Neg (NEG) Urine Ethyl Alcohol Neg (NEG) Sodium Level 142 mmol/L (136-145) Potassium Level 3.5 mmol/L (3.5-5.1) Chloride Level 102 mmol/L (98-107) Carbon Dioxide Level 34 mmol/L (21-32) Anion Gap 6 (6-14) Blood Urea Nitrogen 10 mg/dL (7-20) Creatinine 0.7 mg/dL (0.6-1.0) Estimated GFR (Cockcroft-Gault) 102.3 Glucose Level 198 mg/dL (70-99) Calcium Level 9.4 mg/dL (8.5-10.1) Magnesium Level 1.7 mg/dL (1.8-2.4) Triglycerides Level 94 mg/dL (0-150) Cholesterol Level 195 mg/dL (0-200) LDL Cholesterol, Calculated 137 mg/dL (0-100) VLDL Cholesterol, Calculated 19 mg/dL (0-40) Non-HDL Cholesterol Calculated 156 mg/dL (0-129) HDL Cholesterol 39 mg/dL (40-60) Cholesterol/HDL Ratio 5.0 Test 11/07/18 07:20 11/07/18 12:02 Glucose (Fingerstick) 174 mg/dL (70-99) 209 mg/dL (70-99) Medications Current Medications Magnesium Sulfate 50 ml @ 25 mls/hr 1X ONCE IV Last administered on 11/06/18at 15:19; Start 11/06/18 at 14:45; Stop 11/06/18 at 16:44; Status DC Aspirin (Children'S Aspirin) 81 mg 1X ONCE PO Last administered on 11/06/18at 15:15; Start 11/06/18 at 15:00; Stop 11/06/18 at 15:12; Status DC Glipizide (Glucotrol) 5 mg BID PO Last administered on 11/07/18at 09:20; Start 11/06/18 at 21:00 Insulin Glargine (Lantus Syringe) 5 unit QHS SQ ; Start 11/06/18 at 21:00 Insulin Human Lispro (HumaLOG) 0-5 UNITS TIDACHC SQ ; Start 11/06/18 at 21:00 Dextrose (Dextrose 50%-Water Syringe) 12.5 gm PRN Q15MIN PRN IV SEE COMMENTS; Start 11/06/18 at 16:45 Dextrose 250 ml PRN Q15MIN PRN IV SEE COMMENTS; Start 11/06/18 at 16:45 Aspirin (Jyoti Aspirin) 325 mg DAILYWBKFT PO Last administered on 11/07/18at 09:20; Start 11/07/18 at 08:00 Atorvastatin Calcium (Lipitor) 40 mg QHS PO ; Start 11/06/18 at 21:00 Potassium Chloride (Klor-Con) 40 meq 1X ONCE PO Last administered on 11/06/18at 18:12; Start 11/06/18 at 17:00; Stop 11/06/18 at 17:01; Status DC Lisinopril (Prinivil) 10 mg 1X ONCE PO Last administered on 11/07/18at 10:25; Start 11/07/18 at 10:30; Stop 11/07/18 at 10:31; Status DC Active Scripts Active Lisinopril 10 Mg Tablet 1 Tab PO DAILY Atorvastatin Calcium 40 Mg Tablet 40 Mg PO QHS Aspirin 325 Mg Tablet 325 Mg PO DAILYWBKFT Benadryl (Diphenhydramine Hcl) 25 Mg Capsule 2 Cap PO Q6HRS Reported Glipizide 5 Mg Tablet 1 Tab PO BID Metformin Hcl 500 Mg Tablet 500 Mg PO BIDWMEALS Vitals/I & O Vital Sign - Last 24 Hours 11/06/18 11/06/18 11/06/18 11/06/18 16:00 16:48 17:00 19:51 Temp 98.4 98.8 98.4 98.8 Pulse 90 92 98 Resp 16 18 18 B/P (MAP) 158/85 (109) 167/82 (110) Pulse Ox 97 100 96 O2 Delivery Room Air Room Air Room Air 11/06/18 11/06/18 11/07/18 11/07/18 20:05 23:15 03:38 07:46 Temp 98.8 98.4 98.2 98.8 98.4 98.2 Pulse 89 85 84 Resp 18 20 18 B/P (MAP) 180/87 (118) 153/86 (108) 167/91 (116) Pulse Ox 97 97 99 O2 Delivery Room Air Room Air Room Air Room Air 11/07/18 11/07/18 11/07/18 08:00 10:25 11:08 Temp 98.4 98.4 Pulse 84 88 Resp 18 B/P (MAP) 167/91 177/78 (111) Pulse Ox 98 O2 Delivery Room Air Room Air Intake and Output 11/06/18 11/06/18 11/07/18 15:00 23:00 07:00 Intake Total 230 ml 180 ml Balance 230 ml 180 ml BAO BRIGHT MD Nov 07, 2018 15:19
[2018-11-07] MEDS ORDERED: amLODIPine BESYLATE 5 MG TABLET PO ONE (15:30)
[2018-11-07 15:59] VITALS: BP 158/72
[2018-11-07] MEDS ORDERED: MAGNESIUM SULFATE 2GM 50 ML IV ONE (16:00)
[2018-11-07] MEDS: CLOPIDOGREL BISULFATE 75 MG TABLET PO SCH (17:49)
--- NOTE | 2018-11-07 19:22 | PDOC ---
PROGRESS NOTES Assessment Assessment IMPRESSION: Subacute small left richard radiata and left posterior frontal lobe infracts. Aphasia on 11/06/18. DM. HLD. 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 RECOMMENDATIONS/PLAN: Plavix 75 mg daily. DC ASA. Continue Lipitor 40 mg HS. Treat medical diseases. FU with PCP. FU with Neurology as needed. Carotid A US + Doppler and Echo unremarkable. PAST MEDICAL HISTORY: Hyperlipidemia. She reports taking a lipid-lowering medicine on one occasion and felt to provoke side effects, so she did not take it any further. Diabetes. Hypertension. ALLERGIES: No known allergies to drugs. FAMILY HISTORY: Diabetes, hyperlipidemia and hypertension are in the family. SOCIAL HISTORY: She quit smoking between 5 and 10 years ago. She does not drink alcohol or use recreational drugs. She is single. She has children, grandchildren and 1 great grandchild. REVIEW OF SYSTEMS: She has not had any headache. There has been no change of vision or hearing. She has had no cognitive loss but did have inability to get out words for 20 minutes this morning. She has had no trouble with swallow. She has not had shortness of breath, cough or cold. She denies chest or abdominal pain. Does not have bone or joint pain. She has not had fever or rash. Has not had gastrointestinal or genitourinary complaints. Does not complain of easy bruising, bleeding or swelling. Denies any psychiatric concerns. MEDICATIONS: Refer to [facility] PHYSICAL EXAMINATION: General appearance in no acute distress. HEENT: Normocephalic and nontraumatic. Eyes, nose, ears, and throat are unremarkable. Hearing decrease. Neck is supple. No lymphadenopathy. No bruits are heard over the carotid artery. No Crepitus. Cardiovascular: S1, S2, regular rate and rhythm. Pulmonary: Clear to auscultation bilaterally. Abdomen: Bowel sounds are positive. Abdomen is soft, nontender, and nondistended. Extremities: No rash, lesions, or edema. No restriction of range of motion NEUROLOGICAL EXAMINATION: Alert. Aphasia resolved. Her speech is normalized. Oriented to time, place and person. PERRL. EOMI. CN: no focal findings. Muscle tone: within normal. Muscle strength: 5 DTR: 2 Plantar reflex: Flexor response bilaterally Gait: not examined in bed. Sensory exam: no abnormal findings. No cerebellar signs elicited. F-T-N test fine. Objective Objective Vital Signs Date Time Temp Pulse Resp B/P (MAP) Pulse Ox O2 Delivery O2 Flow Rate FiO2 11/07/18 15:59 98.3 87 18 158/72 (100) 99 Room Air 98.3 Intake and Output 11/07/18 07:00 Intake Total 410 ml Balance 410 ml Intake Oral 360 ml IV Total 50 ml # Voids 2 Vitals Signs Vitals VS - Last 72 Hours, by Label Date Time Temp Pulse Resp B/P (MAP) Pulse Ox O2 Delivery O2 Flow Rate FiO2 11/07/18 15:59 98.3 87 18 158/72 (100) 99 Room Air 98.3 11/07/18 15:54 88 177/78 11/07/18 11:08 98.4 88 18 177/78 (111) 98 Room Air 98.4 11/07/18 10:25 84 167/91 11/07/18 08:00 Room Air 11/07/18 07:46 98.2 84 18 167/91 (116) 99 Room Air 98.2 11/07/18 03:38 98.4 85 20 153/86 (108) 97 Room Air 98.4 11/06/18 23:15 98.8 89 18 180/87 (118) 97 Room Air 98.8 11/06/18 20:05 Room Air 11/06/18 19:51 98.8 98 18 167/82 (110) 96 Room Air 98.8 11/06/18 17:00 Room Air 11/06/18 16:48 98.4 92 18 158/85 (109) 100 Room Air 98.4 11/06/18 16:00 90 16 97 11/06/18 15:00 98 14 100 11/06/18 14:00 98 14 99 11/06/18 13:00 98 11 98 11/06/18 12:31 98.1 98 16 145/70 (95) 98 Room Air 98.1 Laboratory Laboratory Laboratory Tests Test 11/06/18 21:13 11/07/18 02:00 11/07/18 03:00 11/07/18 07:20 Glucose (Fingerstick) 266 mg/dL (70-99) 174 mg/dL (70-99) Urine Collection Type Unknown Urine Color Yellow Urine Clarity Clear Urine pH 7.5 Urine Specific [place] 1.020 Urine Protein 30 mg/dL (NEG-TRACE) Urine Glucose (UA) 500 mg/dL (NEG) Urine Ketones (Stick) Trace mg/dL (NEG) Urine Blood Negative (NEG) Urine Nitrite Negative (NEG) Urine Bilirubin Negative (NEG) Urine Urobilinogen Dipstick 1.0 mg/dL (0.2 mg/dL) Urine Leukocyte Esterase Negative (NEG) Urine RBC 0 /HPF (0-2) Urine WBC Occ /HPF (0-4) Urine Squamous Epithelial Cells Mod /LPF Urine Amorphous Sediment Present /HPF Urine Bacteria Few /HPF (0-FEW) Urine Hyaline Casts Few /HPF Urine Mucus Mod /LPF Urine Opiates Screen Neg (NEG) Urine Methadone Screen Neg (NEG) Urine Barbiturates Neg (NEG) Urine Phencyclidine Screen Neg (NEG) Urine Amphetamine/Methamphetamine Neg (NEG) Urine Benzodiazepines Screen Neg (NEG) Urine Cocaine Screen Neg (NEG) Urine Cannabinoids Screen Neg (NEG) Urine Ethyl Alcohol Neg (NEG) Sodium Level 142 mmol/L (136-145) Potassium Level 3.5 mmol/L (3.5-5.1) Chloride Level 102 mmol/L (98-107) Carbon Dioxide Level 34 mmol/L (21-32) Anion Gap 6 (6-14) Blood Urea Nitrogen 10 mg/dL (7-20) Creatinine 0.7 mg/dL (0.6-1.0) Estimated GFR (Cockcroft-Gault) 102.3 Glucose Level 198 mg/dL (70-99) Calcium Level 9.4 mg/dL (8.5-10.1) Magnesium Level 1.7 mg/dL (1.8-2.4) Triglycerides Level 94 mg/dL (0-150) Cholesterol Level 195 mg/dL (0-200) LDL Cholesterol, Calculated 137 mg/dL (0-100) VLDL Cholesterol, Calculated 19 mg/dL (0-40) Non-HDL Cholesterol Calculated 156 mg/dL (0-129) HDL Cholesterol 39 mg/dL (40-60) Cholesterol/HDL Ratio 5.0 Test 11/07/18 12:02 11/07/18 17:00 Glucose (Fingerstick) 209 mg/dL (70-99) 235 mg/dL (70-99) Medication Medications Current Medications Amlodipine Besylate (Norvasc) 2.5 mg 1X ONCE PO Last administered on 11/07/18at 15:54; Start 11/07/18 at 15:30; Stop 11/07/18 at 15:31; Status DC Amlodipine Besylate (Norvasc) 2.5 mg DAILY PO ; Start 11/08/18 at 09:00 Aspirin (Jyoti Aspirin) 325 mg DAILYWBKFT PO Last administered on 11/07/18at 09:20; Start 11/07/18 at 08:00 Atorvastatin Calcium (Lipitor) 40 mg QHS PO ; Start 11/06/18 at 21:00 Clopidogrel Bisulfate (Plavix) 75 mg DAILYWBKFT PO Last administered on 11/07/18at 17:49; Start 11/07/18 at 17:00 Glipizide (Glucotrol) 5 mg BID PO Last administered on 11/07/18at 09:20; Start 11/06/18 at 21:00 Insulin Glargine (Lantus Syringe) 5 unit QHS SQ ; Start 11/06/18 at 21:00 Insulin Human Lispro (HumaLOG) 0-5 UNITS TIDACHC SQ ; Start 11/06/18 at 21:00 Lisinopril (Prinivil) 10 mg 1X ONCE PO Last administered on 11/07/18at 10:25; Start 11/07/18 at 10:30; Stop 11/07/18 at 10:31; Status DC Magnesium Sulfate 50 ml @ 25 mls/hr 1X ONCE IV Last administered on 11/07/18at 15:54; Start 11/07/18 at 16:00; Stop 11/07/18 at 17:59; Status DC Comment Review of Relevant I have reviewed the following items chirag (where applicable) has been applied. ROXIE SMITH MD Nov 07, 2018 19:22
[2018-11-07 19:58] VITALS: BP 133/67
[2018-11-07] MEDS: INSULIN GLARGINE SYRINGE. SQ SCH (20:48)
[2018-11-07] MEDS: ATORVASTATIN CALCIUM 40 MG TABLET. PO SCH (20:49)
[2018-11-07 23:23] VITALS: BP 148/52
[2018-11-08 03:54] VITALS: BP 129/59
[2018-11-08 07:15] VITALS: BP 132/68
[2018-11-08] MEDS: INSULIN LISPRO 300 UNITS/3 ML VIAL. SQ SCH ×2 (07:30→11:30)
--- NOTE | 2018-11-08 08:49 | NUR ---
SW following pt for dc planning. Chart reviewed and pt lives at home with family, is self pay. Will continue to follow pt pending dc needs.
[2018-11-08] MEDS ORDERED: amLODIPine BESYLATE 5 MG TABLET PO SCH (09:00)
[2018-11-08 09:09] LABS: HEMOGLOBIN 12.3 g/dL (12.0-15.5); RED BLOOD COUNT 4.15 x10^6/uL (3.50-5.40); RED CELL DISTRIBUTION WIDTH 13.6 % (11.5-14.5); WHITE BLOOD COUNT 9.6 x10^3/uL (4.0-11.0)
--- NOTE | 2018-11-08 09:09 | NUR ---
Deb reports, pt suddenly had a hard time expressing words. Code stroke called. Glucose 228. BP 127/70 HR 89 sats 98%. NIH score of 1. pt having trouble getting words out. CT and MRI completed on 11/07. 914 Patient talking better. still has episodes where she stops and thinks about words. Son in room with patient. Addendum: 11/08/18 at 0918 by FRAN BECKER RN Amended: Links added.
[2018-11-08] MEDS: CLOPIDOGREL BISULFATE 75 MG TABLET PO SCH (09:10)
[2018-11-08] MEDS: glipiZIDE 5 MG TABLET PO SCH (09:10)
[2018-11-08 09:15] LABS: HEMOGLOBIN A1C 10.4 % (4.8-5.6)
[2018-11-08] MEDS ORDERED: MAGNESIUM SULFATE 2GM 50 ML IV ONE (09:30)
[2018-11-08 09:41] LABS: CALCIUM 9.7 mg/dL (8.5-10.1); CREATININE 0.9 mg/dL (0.6-1.0); GFR 76.5; MAGNESIUM 1.9 mg/dL (1.8-2.4); POTASSIUM 3.9 mmol/L (3.5-5.1)
--- NOTE | 2018-11-08 11:00 | NUR ---
At 0840, this nurse was called by aide to evaluate the patient. Apparently, the patient was talking to her son over the phone when she was noticed having slurred speech and was unable to speak. Upon assessment, the patient is alert, awake, follows commands. NIHSS was 5. She had slurred speech, right facial droop, drift on her right arm and leg, sensory and cerebellar tests were negative. Called code stroke, ICU nurse and supervisor framing [employer] arrived to check on the patient. Within few minutes, the patient's symptoms slowly resolved. Review of Head CT and MRI done which showed subacute ischemia on left richard radiata, and left posterior frontal lobe. Hospitalist was notified, blood tests ordered and drawn. Neurology was updated about the recurrence of symptoms. This nurse was told by Dr. Warner that we will continue the present management, symptoms are from the confirmed stroke that was noted on her Brain MRI. She also agreed with the repeat Head CT.
--- NOTE | 2018-11-08 11:08 | RAD ---
EXAM: Head CT without contrast. HISTORY: Expressive aphasia. TECHNIQUE: Computed tomographic images of the head were obtained without contrast. *One or more of the following individualized dose reduction techniques were utilized for this examination: 1. Automated exposure control. 2. Adjustment of the mA and/or kV according to patient size. 3. Use of iterative reconstruction technique. COMPARISON: MRI dated 11/07/2018.. FINDINGS: There is no acute or subacute extra-axial or intraparenchymal hemorrhage. There is no mass effect or midline shift. There is no hydrocephalus. There are areas of decreased attenuation within the cerebral white matter, nonspecific and likely related to chronic small vessel disease. There is a suspected chronic infarct within the left putamen. There is mild cerebral volume loss. The visualized portions of the orbits, paranasal sinuses and mastoid air cells are unremarkable. No suspicious calvarial lesion is seen. IMPRESSION: 1. Decreased attenuation within the cerebral white matter, a nonspecific finding which can be seen with chronic small vessel disease. 2. Note is made that small subacute infarcts within the left richard radiata and posterior frontal lobe demonstrated on the MRI performed one day prior are not well seen on this exam due to differences in imaging modality of the presence of chronic white matter changes. MRI is more sensitive for acute subacute infarction. 3. Suspected chronic infarct within the left basal ganglia. 4. Mild cerebral volume loss. Electronically signed by: Lisy Charles MD (11/08/2018 11:06 AM) [id number]
[2018-11-08 11:15] VITALS: BP 159/86
--- NOTE | 2018-11-08 13:28 | PDOC ---
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 Aphasia on 11/06/18. Hyperglycemia. DM. HLD. 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 Former smoker. RECOMMENDATIONS/PLAN: Restart ASA 325 mg daily. (She does not take ASA before this admission). Continue Lipitor 40 mg HS. Treat medical diseases. Control hyperglycemia. CTA if has signs of large vessel stroke. FU with PCP. FU with Neurology as needed. Patient education for secondary stroke prevention. I had a very lengthy discussion with patient and her son at bedside on 11/08/18. Carotid A US + Doppler and Echo unremarkable. OBJECTIVE: She had another brief episode of slurred speech around 8:30 am, resolved then. No focalized sensory or motor deficits. PAST MEDICAL HISTORY: Hyperlipidemia. She reports taking a lipid-lowering medicine on one occasion and felt to provoke side effects, so she did not take it any further. Diabetes. Hypertension. ALLERGIES: No known allergies to drugs. FAMILY HISTORY: Diabetes, hyperlipidemia and hypertension are in the family. SOCIAL HISTORY: She quit smoking between 5 and 10 years ago. She does not drink alcohol or use recreational drugs. She is single. She has children, grandchildren and 1 great grandchild. REVIEW OF SYSTEMS: She has not had any headache. There has been no change of vision or hearing. She has had no cognitive loss but did have inability to get out words for 20 minutes this morning. She has had no trouble with swallow. She has not had shortness of breath, cough or cold. She denies chest or abdominal pain. Does not have bone or joint pain. She has not had fever or rash. Has not had gastrointestinal or genitourinary complaints. Does not complain of easy bruising, bleeding or swelling. Denies any psychiatric concerns. MEDICATIONS: Refer to [facility] PHYSICAL EXAMINATION: General appearance in no acute distress. HEENT: Normocephalic and nontraumatic. Eyes, nose, ears, and throat are unremarkable. Hearing decrease. Neck is supple. No lymphadenopathy. No bruits are heard over the carotid artery. No Crepitus. Cardiovascular: S1, S2, regular rate and rhythm. Pulmonary: Clear to auscultation bilaterally. Abdomen: Bowel sounds are positive. Abdomen is soft, nontender, and nondistended. Extremities: No rash, lesions, or edema. No restriction of range of motion NEUROLOGICAL EXAMINATION: Alert. Aphasia resolved. Her speech is normalized. Oriented to time, place and person. PERRL. EOMI. CN: no focal findings. Muscle tone: within normal. Muscle strength: 5 DTR: 2 Plantar reflex: Flexor response bilaterally Gait: not examined in bed. Sensory exam: no abnormal findings. No cerebellar signs elicited. F-T-N test fine. Objective Objective Vital Signs Date Time Temp Pulse Resp B/P (MAP) Pulse Ox O2 Delivery O2 Flow Rate FiO2 11/08/18 11:15 97.4 89 20 159/86 (110) 97 Room Air 97.4 Intake and Output 11/08/18 07:00 Intake Total 760 ml Balance 760 ml Intake Oral 760 ml # Voids 1 Vitals Signs Vitals VS - Last 72 Hours, by Label Date Time Temp Pulse Resp B/P (MAP) Pulse Ox O2 Delivery O2 Flow Rate FiO2 11/08/18 11:15 97.4 89 20 159/86 (110) 97 Room Air 97.4 11/08/18 09:11 85 132/68 11/08/18 08:00 Room Air 11/08/18 07:15 98.3 85 20 132/68 (89) 94 Room Air 98.3 11/08/18 03:54 98.4 79 16 129/59 (82) 98 Room Air 98.4 11/07/18 23:23 98.0 85 16 148/52 (84) 97 Room Air 98.0 11/07/18 20:30 Room Air 11/07/18 19:58 97.9 89 18 133/67 (89) 99 Room Air 97.9 11/07/18 15:59 98.3 87 18 158/72 (100) 99 Room Air 98.3 11/07/18 15:54 88 177/78 11/07/18 11:08 98.4 88 18 177/78 (111) 98 Room Air 98.4 11/07/18 10:25 84 167/91 11/07/18 08:00 Room Air 11/07/18 07:46 98.2 84 18 167/91 (116) 99 Room Air 98.2 Laboratory Laboratory Laboratory Tests Test 11/07/18 17:00 11/07/18 21:11 11/08/18 07:24 11/08/18 08:46 Glucose (Fingerstick) 235 mg/dL (70-99) 274 mg/dL (70-99) 186 mg/dL (70-99) 228 mg/dL (70-99) Test 11/08/18 09:00 11/08/18 11:04 White Blood Count 9.6 x10^3/uL (4.0-11.0) Red Blood Count 4.15 x10^6/uL (3.50-5.40) Hemoglobin 12.3 g/dL (12.0-15.5) Hematocrit 36.0 % (36.0-47.0) Mean Corpuscular Volume 87 fL (79-100) Mean Corpuscular Hemoglobin 30 pg (25-35) Mean Corpuscular Hemoglobin Concent 34 g/dL (31-37) Red Cell Distribution Width 13.6 % (11.5-14.5) Platelet Count 348 x10^3/uL (140-400) Sodium Level 143 mmol/L (136-145) Potassium Level 3.9 mmol/L (3.5-5.1) Chloride Level 102 mmol/L (98-107) Carbon Dioxide Level 34 mmol/L (21-32) Anion Gap 7 (6-14) Blood Urea Nitrogen 10 mg/dL (7-20) Creatinine 0.9 mg/dL (0.6-1.0) Estimated GFR (Cockcroft-Gault) 76.5 Glucose Level 250 mg/dL (70-99) Calcium Level 9.7 mg/dL (8.5-10.1) Magnesium Level 1.9 mg/dL (1.8-2.4) Glucose (Fingerstick) 226 mg/dL (70-99) Medication Medications Current Medications Amlodipine Besylate (Norvasc) 2.5 mg 1X ONCE PO Last administered on 11/07/18at 15:54; Start 11/07/18 at 15:30; Stop 11/07/18 at 15:31; Status DC Amlodipine Besylate (Norvasc) 2.5 mg DAILY PO Last administered on 11/08/18at 09:11; Start 11/08/18 at 09:00 Clopidogrel Bisulfate (Plavix) 75 mg DAILYWBKFT PO Last administered on 11/08/18at 09:11; Start 11/07/18 at 17:00 Magnesium Sulfate 50 ml @ 25 mls/hr 1X ONCE IV Last administered on 11/07/18at 15:54; Start 11/07/18 at 16:00; Stop 11/07/18 at 17:59; Status DC Magnesium Sulfate 50 ml @ 25 mls/hr 1X ONCE IV Last administered on 11/08/18at 13:09; Start 11/08/18 at 09:30; Stop 11/08/18 at 11:29; Status DC Comment Review of Relevant I have reviewed the following items chirag (where applicable) has been applied. ROXIE SMITH MD Nov 08, 2018 13:28
[2018-11-08] MEDS ORDERED: ASPIRIN 325 MG TABLET PO SCH (14:00)
--- NOTE | 2018-11-08 15:08 | PDOC ---
PROGRESS NOTES Chief Complaint Chief Complaint CVA, CVA syndrome, subacute CVA, left posterior frontal lobe Expressive aphasia - Abnormal weight loss - unintentionall Diabetes-Type II - on metformin and glipizide, Hold metformin in case CTA ordered. Sliding scale as well for now Hypomagnesemia - will replace IV for mag 1.4. Replace potassium as well Anxiety - stress at work, take a few days off work. History of Present Illness History of Present Illness worse symptoms this AM CT head, no change may have TIA, post CVA syndrome neuro following Vitals Vitals Vital Signs Date Time Temp Pulse Resp B/P (MAP) Pulse Ox O2 Delivery O2 Flow Rate FiO2 11/08/18 11:15 97.4 89 20 159/86 (110) 97 Room Air 97.4 Physical Exam General: Alert, Oriented X3, Cooperative, No acute distress Heart: Regular rate, No murmurs Lungs: Clear Abdomen: Normal bowel sounds, Soft, No tenderness, No hepatosplenomegaly, No masses Extremities: No clubbing, No cyanosis, No edema, Normal pulses, No tenderness/swelling Skin: No rashes, No breakdown, No significant lesion Labs LABS Laboratory Tests Test 11/07/18 17:00 11/07/18 21:11 11/08/18 07:24 11/08/18 08:46 Glucose (Fingerstick) 235 mg/dL (70-99) 274 mg/dL (70-99) 186 mg/dL (70-99) 228 mg/dL (70-99) Test 11/08/18 09:00 11/08/18 11:04 White Blood Count 9.6 x10^3/uL (4.0-11.0) Red Blood Count 4.15 x10^6/uL (3.50-5.40) Hemoglobin 12.3 g/dL (12.0-15.5) Hematocrit 36.0 % (36.0-47.0) Mean Corpuscular Volume 87 fL (79-100) Mean Corpuscular Hemoglobin 30 pg (25-35) Mean Corpuscular Hemoglobin Concent 34 g/dL (31-37) Red Cell Distribution Width 13.6 % (11.5-14.5) Platelet Count 348 x10^3/uL (140-400) Sodium Level 143 mmol/L (136-145) Potassium Level 3.9 mmol/L (3.5-5.1) Chloride Level 102 mmol/L (98-107) Carbon Dioxide Level 34 mmol/L (21-32) Anion Gap 7 (6-14) Blood Urea Nitrogen 10 mg/dL (7-20) Creatinine 0.9 mg/dL (0.6-1.0) Estimated GFR (Cockcroft-Gault) 76.5 Glucose Level 250 mg/dL (70-99) Calcium Level 9.7 mg/dL (8.5-10.1) Magnesium Level 1.9 mg/dL (1.8-2.4) Glucose (Fingerstick) 226 mg/dL (70-99) Assessment and Plan Assessmemt and Plan Problems Medical Problems: (1) Elevated brain natriuretic peptide (BNP) level Status: Acute (2) Expressive aphasia Status: Acute (3) Hypomagnesemia Status: Acute (4) Uncontrolled diabetes mellitus Status: Acute (5) Weight loss Status: Acute Comment Review of Relevant I have reviewed the following items chirag (where applicable) has been applied. Labs Laboratory Tests Test 11/06/18 16:54 11/06/18 21:13 11/07/18 02:00 11/07/18 03:00 Glucose (Fingerstick) 171 mg/dL (70-99) 266 mg/dL (70-99) Urine Collection Type Unknown Urine Color Yellow Urine Clarity Clear Urine pH 7.5 Urine Specific [place] 1.020 Urine Protein 30 mg/dL (NEG-TRACE) Urine Glucose (UA) 500 mg/dL (NEG) Urine Ketones (Stick) Trace mg/dL (NEG) Urine Blood Negative (NEG) Urine Nitrite Negative (NEG) Urine Bilirubin Negative (NEG) Urine Urobilinogen Dipstick 1.0 mg/dL (0.2 mg/dL) Urine Leukocyte Esterase Negative (NEG) Urine RBC 0 /HPF (0-2) Urine WBC Occ /HPF (0-4) Urine Squamous Epithelial Cells Mod /LPF Urine Amorphous Sediment Present /HPF Urine Bacteria Few /HPF (0-FEW) Urine Hyaline Casts Few /HPF Urine Mucus Mod /LPF Urine Opiates Screen Neg (NEG) Urine Methadone Screen Neg (NEG) Urine Barbiturates Neg (NEG) Urine Phencyclidine Screen Neg (NEG) Urine Amphetamine/Methamphetamine Neg (NEG) Urine Benzodiazepines Screen Neg (NEG) Urine Cocaine Screen Neg (NEG) Urine Cannabinoids Screen Neg (NEG) Urine Ethyl Alcohol Neg (NEG) Sodium Level 142 mmol/L (136-145) Potassium Level 3.5 mmol/L (3.5-5.1) Chloride Level 102 mmol/L (98-107) Carbon Dioxide Level 34 mmol/L (21-32) Anion Gap 6 (6-14) Blood Urea Nitrogen 10 mg/dL (7-20) Creatinine 0.7 mg/dL (0.6-1.0) Estimated GFR (Cockcroft-Gault) 102.3 Glucose Level 198 mg/dL (70-99) Hemoglobin A1c 10.4 % (4.8-5.6) Calcium Level 9.4 mg/dL (8.5-10.1) Magnesium Level 1.7 mg/dL (1.8-2.4) Triglycerides Level 94 mg/dL (0-150) Cholesterol Level 195 mg/dL (0-200) LDL Cholesterol, Calculated 137 mg/dL (0-100) VLDL Cholesterol, Calculated 19 mg/dL (0-40) Non-HDL Cholesterol Calculated 156 mg/dL (0-129) HDL Cholesterol 39 mg/dL (40-60) Cholesterol/HDL Ratio 5.0 Test 11/07/18 07:20 11/07/18 12:02 11/07/18 17:00 11/07/18 21:11 Glucose (Fingerstick) 174 mg/dL (70-99) 209 mg/dL (70-99) 235 mg/dL (70-99) 274 mg/dL (70-99) Test 11/08/18 07:24 11/08/18 08:46 11/08/18 09:00 11/08/18 11:04 Glucose (Fingerstick) 186 mg/dL (70-99) 228 mg/dL (70-99) 226 mg/dL (70-99) White Blood Count 9.6 x10^3/uL (4.0-11.0) Red Blood Count 4.15 x10^6/uL (3.50-5.40) Hemoglobin 12.3 g/dL (12.0-15.5) Hematocrit 36.0 % (36.0-47.0) Mean Corpuscular Volume 87 fL (79-100) Mean Corpuscular Hemoglobin 30 pg (25-35) Mean Corpuscular Hemoglobin Concent 34 g/dL (31-37) Red Cell Distribution Width 13.6 % (11.5-14.5) Platelet Count 348 x10^3/uL (140-400) Sodium Level 143 mmol/L (136-145) Potassium Level 3.9 mmol/L (3.5-5.1) Chloride Level 102 mmol/L (98-107) Carbon Dioxide Level 34 mmol/L (21-32) Anion Gap 7 (6-14) Blood Urea Nitrogen 10 mg/dL (7-20) Creatinine 0.9 mg/dL (0.6-1.0) Estimated GFR (Cockcroft-Gault) 76.5 Glucose Level 250 mg/dL (70-99) Calcium Level 9.7 mg/dL (8.5-10.1) Magnesium Level 1.9 mg/dL (1.8-2.4) Laboratory Tests Test 11/07/18 17:00 11/07/18 21:11 11/08/18 07:24 11/08/18 08:46 Glucose (Fingerstick) 235 mg/dL (70-99) 274 mg/dL (70-99) 186 mg/dL (70-99) 228 mg/dL (70-99) Test 11/08/18 09:00 11/08/18 11:04 White Blood Count 9.6 x10^3/uL (4.0-11.0) Red Blood Count 4.15 x10^6/uL (3.50-5.40) Hemoglobin 12.3 g/dL (12.0-15.5) Hematocrit 36.0 % (36.0-47.0) Mean Corpuscular Volume 87 fL (79-100) Mean Corpuscular Hemoglobin 30 pg (25-35) Mean Corpuscular Hemoglobin Concent 34 g/dL (31-37) Red Cell Distribution Width 13.6 % (11.5-14.5) Platelet Count 348 x10^3/uL (140-400) Sodium Level 143 mmol/L (136-145) Potassium Level 3.9 mmol/L (3.5-5.1) Chloride Level 102 mmol/L (98-107) Carbon Dioxide Level 34 mmol/L (21-32) Anion Gap 7 (6-14) Blood Urea Nitrogen 10 mg/dL (7-20) Creatinine 0.9 mg/dL (0.6-1.0) Estimated GFR (Cockcroft-Gault) 76.5 Glucose Level 250 mg/dL (70-99) Calcium Level 9.7 mg/dL (8.5-10.1) Magnesium Level 1.9 mg/dL (1.8-2.4) Glucose (Fingerstick) 226 mg/dL (70-99) Medications Current Medications Magnesium Sulfate 50 ml @ 25 mls/hr 1X ONCE IV Last administered on 11/06/18at 15:19; Start 11/06/18 at 14:45; Stop 11/06/18 at 16:44; Status DC Aspirin (Children'S Aspirin) 81 mg 1X ONCE PO Last administered on 11/06/18at 15:15; Start 11/06/18 at 15:00; Stop 11/06/18 at 15:12; Status DC Glipizide (Glucotrol) 5 mg BID PO Last administered on 11/08/18at 09:11; Start 11/06/18 at 21:00 Insulin Glargine (Lantus Syringe) 5 unit QHS SQ ; Start 11/06/18 at 21:00 Insulin Human Lispro (HumaLOG) 0-5 UNITS TIDACHC SQ ; Start 11/06/18 at 21:00 Dextrose (Dextrose 50%-Water Syringe) 12.5 gm PRN Q15MIN PRN IV SEE COMMENTS; Start 11/06/18 at 16:45 Dextrose 250 ml PRN Q15MIN PRN IV SEE COMMENTS; Start 11/06/18 at 16:45 Aspirin (Jyoti Aspirin) 325 mg DAILYWBKFT PO Last administered on 11/07/18at 09:20; Start 11/07/18 at 08:00; Stop 11/07/18 at 19:16; Status DC Atorvastatin Calcium (Lipitor) 40 mg QHS PO Last administered on 11/07/18at 20:49; Start 11/06/18 at 21:00 Potassium Chloride (Klor-Con) 40 meq 1X ONCE PO Last administered on 11/06/18at 18:12; Start 11/06/18 at 17:00; Stop 11/06/18 at 17:01; Status DC Lisinopril (Prinivil) 10 mg 1X ONCE PO Last administered on 11/07/18at 10:25; Start 11/07/18 at 10:30; Stop 11/07/18 at 10:31; Status DC Magnesium Sulfate 50 ml @ 25 mls/hr 1X ONCE IV Last administered on 11/07/18at 15:54; Start 11/07/18 at 16:00; Stop 11/07/18 at 17:59; Status DC Amlodipine Besylate (Norvasc) 2.5 mg DAILY PO Last administered on 11/08/18at 09:11; Start 11/08/18 at 09:00 Amlodipine Besylate (Norvasc) 2.5 mg 1X ONCE PO Last administered on 11/07/18at 15:54; Start 11/07/18 at 15:30; Stop 11/07/18 at 15:31; Status DC Clopidogrel Bisulfate (Plavix) 75 mg DAILYWBKFT PO Last administered on 11/08/18at 09:11; Start 11/07/18 at 17:00; Stop 11/08/18 at 14:00; Status DC Magnesium Sulfate 50 ml @ 25 mls/hr 1X ONCE IV Last administered on 11/08/18at 13:09; Start 11/08/18 at 09:30; Stop 11/08/18 at 11:29; Status DC Aspirin (Jyoti Aspirin) 325 mg DAILYWBKFT PO ; Start 11/08/18 at 14:00 Active Scripts Active Lisinopril 10 Mg Tablet 1 Tab PO DAILY Atorvastatin Calcium 40 Mg Tablet 40 Mg PO QHS Aspirin 325 Mg Tablet 325 Mg PO DAILYWBKFT Benadryl (Diphenhydramine Hcl) 25 Mg Capsule 2 Cap PO Q6HRS Reported Glipizide 5 Mg Tablet 1 Tab PO BID Metformin Hcl 500 Mg Tablet 500 Mg PO BIDWMEALS Vitals/I & O Vital Sign - Last 24 Hours 11/07/18 11/07/18 11/07/18 11/07/18 15:54 15:59 19:58 20:30 Temp 98.3 97.9 98.3 97.9 Pulse 88 87 89 Resp 18 18 B/P (MAP) 177/78 158/72 (100) 133/67 (89) Pulse Ox 99 99 O2 Delivery Room Air Room Air Room Air 11/07/18 11/08/18 11/08/18 11/08/18 23:23 03:54 07:15 08:00 Temp 98.0 98.4 98.3 98.0 98.4 98.3 Pulse 85 79 85 Resp 16 16 20 B/P (MAP) 148/52 (84) 129/59 (82) 132/68 (89) Pulse Ox 97 98 94 O2 Delivery Room Air Room Air Room Air Room Air 11/08/18 11/08/18 09:11 11:15 Temp 97.4 97.4 Pulse 85 89 Resp 20 B/P (MAP) 132/68 159/86 (110) Pulse Ox 97 O2 Delivery Room Air Intake and Output 11/07/18 11/07/18 11/08/18 15:00 23:00 07:00 Intake Total 400 ml 240 ml 120 ml Balance 400 ml 240 ml 120 ml BAO BRIGHT MD Nov 08, 2018 15:08
[2018-11-08 15:12] VITALS: BP 125/60
[2018-11-08] MEDS ORDERED: GLIP5TAB10 PO (15:21)
--- NOTE | 2018-11-08 15:25 | PDOC3 ---
Discharge Summary Visit Information Date of Admission: Nov 06, 2018 Date of Discharge: Nov 08, 2018 Final Diagnosis Subacute small left richard radiata and left posterior frontal lobe infracts. Aphasia on 11/06/18. Hyperglycemia. DM. HLD. 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 Former smoker. Problems Medical Problems: (1) Elevated brain natriuretic peptide (BNP) level Status: Acute (2) Expressive aphasia Status: Acute (3) Hypomagnesemia Status: Acute (4) Uncontrolled diabetes mellitus Status: Acute (5) Weight loss Status: Acute Brief Hospital Course Allergies Allergies Coded Allergies Type Severity Reaction Last Updated Verified No Known Drug Allergies 02/26/15 No Vital Signs Vital Signs Date Time Temp Pulse Resp B/P (MAP) Pulse Ox O2 Delivery O2 Flow Rate FiO2 11/08/18 11:15 97.4 89 20 159/86 (110) 97 Room Air 97.4 Lab Results Laboratory Tests Test 11/06/18 16:54 11/06/18 21:13 11/07/18 02:00 11/07/18 03:00 Glucose (Fingerstick) 171 mg/dL (70-99) 266 mg/dL (70-99) Urine Collection Type Unknown Urine Color Yellow Urine Clarity Clear Urine pH 7.5 Urine Specific [place] 1.020 Urine Protein 30 mg/dL (NEG-TRACE) Urine Glucose (UA) 500 mg/dL (NEG) Urine Ketones (Stick) Trace mg/dL (NEG) Urine Blood Negative (NEG) Urine Nitrite Negative (NEG) Urine Bilirubin Negative (NEG) Urine Urobilinogen Dipstick 1.0 mg/dL (0.2 mg/dL) Urine Leukocyte Esterase Negative (NEG) Urine RBC 0 /HPF (0-2) Urine WBC Occ /HPF (0-4) Urine Squamous Epithelial Cells Mod /LPF Urine Amorphous Sediment Present /HPF Urine Bacteria Few /HPF (0-FEW) Urine Hyaline Casts Few /HPF Urine Mucus Mod /LPF Urine Opiates Screen Neg (NEG) Urine Methadone Screen Neg (NEG) Urine Barbiturates Neg (NEG) Urine Phencyclidine Screen Neg (NEG) Urine Amphetamine/Methamphetamine Neg (NEG) Urine Benzodiazepines Screen Neg (NEG) Urine Cocaine Screen Neg (NEG) Urine Cannabinoids Screen Neg (NEG) Urine Ethyl Alcohol Neg (NEG) Sodium Level 142 mmol/L (136-145) Potassium Level 3.5 mmol/L (3.5-5.1) Chloride Level 102 mmol/L (98-107) Carbon Dioxide Level 34 mmol/L (21-32) Anion Gap 6 (6-14) Blood Urea Nitrogen 10 mg/dL (7-20) Creatinine 0.7 mg/dL (0.6-1.0) Estimated GFR (Cockcroft-Gault) 102.3 Glucose Level 198 mg/dL (70-99) Hemoglobin A1c 10.4 % (4.8-5.6) Calcium Level 9.4 mg/dL (8.5-10.1) Magnesium Level 1.7 mg/dL (1.8-2.4) Triglycerides Level 94 mg/dL (0-150) Cholesterol Level 195 mg/dL (0-200) LDL Cholesterol, Calculated 137 mg/dL (0-100) VLDL Cholesterol, Calculated 19 mg/dL (0-40) Non-HDL Cholesterol Calculated 156 mg/dL (0-129) HDL Cholesterol 39 mg/dL (40-60) Cholesterol/HDL Ratio 5.0 Test 11/07/18 07:20 11/07/18 12:02 11/07/18 17:00 11/07/18 21:11 Glucose (Fingerstick) 174 mg/dL (70-99) 209 mg/dL (70-99) 235 mg/dL (70-99) 274 mg/dL (70-99) Test 11/08/18 07:24 11/08/18 08:46 11/08/18 09:00 11/08/18 11:04 Glucose (Fingerstick) 186 mg/dL (70-99) 228 mg/dL (70-99) 226 mg/dL (70-99) White Blood Count 9.6 x10^3/uL (4.0-11.0) Red Blood Count 4.15 x10^6/uL (3.50-5.40) Hemoglobin 12.3 g/dL (12.0-15.5) Hematocrit 36.0 % (36.0-47.0) Mean Corpuscular Volume 87 fL (79-100) Mean Corpuscular Hemoglobin 30 pg (25-35) Mean Corpuscular Hemoglobin Concent 34 g/dL (31-37) Red Cell Distribution Width 13.6 % (11.5-14.5) Platelet Count 348 x10^3/uL (140-400) Sodium Level 143 mmol/L (136-145) Potassium Level 3.9 mmol/L (3.5-5.1) Chloride Level 102 mmol/L (98-107) Carbon Dioxide Level 34 mmol/L (21-32) Anion Gap 7 (6-14) Blood Urea Nitrogen 10 mg/dL (7-20) Creatinine 0.9 mg/dL (0.6-1.0) Estimated GFR (Cockcroft-Gault) 76.5 Glucose Level 250 mg/dL (70-99) Calcium Level 9.7 mg/dL (8.5-10.1) Magnesium Level 1.9 mg/dL (1.8-2.4) Laboratory Tests Test 11/07/18 17:00 11/07/18 21:11 11/08/18 07:24 11/08/18 08:46 Glucose (Fingerstick) 235 mg/dL (70-99) 274 mg/dL (70-99) 186 mg/dL (70-99) 228 mg/dL (70-99) Test 11/08/18 09:00 11/08/18 11:04 White Blood Count 9.6 x10^3/uL (4.0-11.0) Red Blood Count 4.15 x10^6/uL (3.50-5.40) Hemoglobin 12.3 g/dL (12.0-15.5) Hematocrit 36.0 % (36.0-47.0) Mean Corpuscular Volume 87 fL (79-100) Mean Corpuscular Hemoglobin 30 pg (25-35) Mean Corpuscular Hemoglobin Concent 34 g/dL (31-37) Red Cell Distribution Width 13.6 % (11.5-14.5) Platelet Count 348 x10^3/uL (140-400) Sodium Level 143 mmol/L (136-145) Potassium Level 3.9 mmol/L (3.5-5.1) Chloride Level 102 mmol/L (98-107) Carbon Dioxide Level 34 mmol/L (21-32) Anion Gap 7 (6-14) Blood Urea Nitrogen 10 mg/dL (7-20) Creatinine 0.9 mg/dL (0.6-1.0) Estimated GFR (Cockcroft-Gault) 76.5 Glucose Level 250 mg/dL (70-99) Calcium Level 9.7 mg/dL (8.5-10.1) Magnesium Level 1.9 mg/dL (1.8-2.4) Glucose (Fingerstick) 226 mg/dL (70-99) Brief Hospital Course Ms. Moreno is a 63 old female, admit [facility] expressive aphasia. CT head neg, MRI showed new CVA Restart ASA 325 mg daily. Continue Lipitor 40 mg HS. Control hyperglycemia. glypizide and metformin FU with PCP. FU with Neurology as needed. Patient education for secondary stroke prevention. Carotid A US + Doppler and Echo unremarkable. Discharge Information Condition at Discharge: Improved Follow Up: Weeks Disposition/Orders: D/C to Home Scheduled Aspirin (Aspirin) 325 Mg Tablet, 325 MG PO DAILYWBKFT for stroke prevention, #100 Prescribed by: BAO BRIGHT on 11/07/18 0946 Atorvastatin Calcium (Atorvastatin Calcium) 40 Mg Tablet, 40 MG PO QHS for hyperlipids, #30 Prescribed by: BAO BRIGHT on 11/07/18 0946 Glipizide (Glipizide) 5 Mg Tablet, 1 TAB PO BID for diabetes, #60 Ref 3 (Reported) Entered as Reported by: CONNER SALGUERO on 02/26/151246 Last Taken: Unknown Dose on 11/06/18 08 Last Action: Last Taken Edited on 11/06/181703 by PATSY QUINONES Glipizide (Glipizide) 5 Mg Tablet, 1 TAB PO BID for DM2, #60 Ref 1 Prescribed by: BAO BRIGHT on 11/08/18 1521 Lisinopril (Lisinopril) 10 Mg Tablet, 1 TAB PO DAILY for hypertension, #30 Ref 1 Prescribed by: BAO BRIGHT on 11/07/18 0948 Metformin Hcl (Metformin Hcl) 500 Mg Tablet, 500 MG PO BIDWMEALS for ANTI- DIABETIC, Ref 0 (Reported) Entered as Reported by: CONNER SALGUERO on 02/26/151246 Last Taken: Unknown Dose on 11/06/18 0800 Last Action: Last Taken Edited on 11/06/181703 by PATSY QUINONES Discontinued Medications Diphenhydramine Hcl (Benadryl) 25 Mg Capsule, 2 CAP PO Q6HRS for rash, #60 Ref 2 Prescribed by: ANDREW DONALD MD on 12/26/17 0255 Last Taken: Unknown Dose on Unknown Date & Time Last Action: Last Taken Edited on 11/06/18 1704 by PATSY QUINONES Patient Instructions Patient Instructions > 30min face to face discussed BAO BRIGHT MD Nov 08, 2018 15:25
--- NOTE | 2018-11-08 17:00 | NUR ---
Discharge Note: [facility] Discharge instructions and discharge home medications reviewed with patient and a copy given. All questions have been answered and understanding verbalized. The following instructions and handouts were given: Prescriptions for ASA 325, glipizide, lisinopril, atorvastatin Follow up with PCP in a week, neurology as needed Stroke education packet. Stroke prevention, ischemic stroke handouts Doctor's note (excuse) from work. Watch out for recurrence of symptoms/new symptoms-severe headache, arm/leg weakness, slurred speech, facial asymmetry, numbness or loss of sensation. Discontinued lines and drains: peripheral IV intact, patient tolerated removal, no complications noted. Patient discharged to home with self care via wheelchair accompanied by family members at 1620. Addendum: 11/08/18 at 1706 by MI FAGAN RN NIHSS prior to discharge is 0
== END 2018-11-08 18:30 | disposition home or self-care (01) | DRG 66 ==
LOC: ER 12:27 → 6 SOUTH 14:56
PROVIDERS: ADMIT Internal Medicine; ATTEND Internal Medicine
DX: I63.9 Cerebral infarction, unspecified (principal); E11.40 Type 2 diabetes mellitus with diabetic neuropathy, unspecified; R47.01 Aphasia; E11.65 Type 2 diabetes mellitus with hyperglycemia; E78.5 Hyperlipidemia, unspecified; E83.42 Hypomagnesemia; I10 Essential (primary) hypertension; Z79.02 Long term (current) use of antithrombotics/antiplatelets; Z79.82 Long term (current) use of aspirin; Z79.899 Other long term (current) drug therapy; Z82.49 Family history of ischemic heart disease and other diseases of the circulatory system; Z83.3 Family history of diabetes mellitus; Z87.891 Personal history of nicotine dependence; F41.9 Anxiety disorder, unspecified
CPT/HCPCS: 36415; 70450; 70551; 71045; 80048; 80053; 80061; 80307; 81001; 82550; 82962; 83036; 83735; 83880; 84443; 84484; 85025; 85027; 85610; 85730; 93005; 93306; 93880; J1815; J3475; 97110; G0378